=== PATIENT | female | born 1955 | race Caucasian/White ===

== ENCOUNTER → 2016-06-26 | Outpatient (CLI) | payer MEDICARE ==
--- NOTE | 2016-06-30 07:15 | MM ---
Reason for exam: screening (asymptomatic). Last mammogram was performed 4 years ago. History: Patient is postmenopausal. Family history of breast cancer in sister at age 49 and breast cancer in sister at age 54. Benign left mammotome panel of the left breast, October 10, 2004. Physical Findings: A clinical breast exam by your physician is recommended on an annual basis and results should be correlated with mammographic findings. MG 3D Screening Mammo W/Cad Bilateral CC and MLO view(s) were taken. Prior study comparison: June 20, 2012, bilateral digital screening mammo w/CAD. June 03, 2011, bilateral digital screening mammo w/CAD. There are scattered fibroglandular densities. Previous mammotome biopsy within the left breast. No significant changes when compared with prior studies. ASSESSMENT: Negative, BI-RAD 1 RECOMMENDATION: Routine screening mammogram of both breasts in 1 year.
== END | disposition home or self-care (01) ==
LOC: RADMAMWWP 12:46
PROVIDERS: ATTEND Family Medicine
DX: Z12.31 Encounter for screening mammogram for malignant neoplasm of breast (principal)
CPT/HCPCS: 77063; G0202

== ENCOUNTER → 2016-12-31 | Outpatient (CLI) | payer MEDICARE, OTHER ==
--- NOTE | 2016-12-31 16:25 | XR ---
Sinus HISTORY: Headache, sinus pressure 4 views of the sinuses Bone mineralization is maintained. There is no air-fluid level in the paranasal sinuses to suggest ac adolph sinusitis. Orbits are intact. No lytic or blastic lesion evident. IMPRESSION: Correlate for point tenderness to assess for sinusitis, sinus CT could be performed for b juan evaluation.
== END | disposition home or self-care (01) ==
LOC: RADXRMAIN 14:04
PROVIDERS: ATTEND Family Medicine
DX: J32.9 Chronic sinusitis, unspecified (principal)
CPT/HCPCS: 70220

== ENCOUNTER → 2017-04-23 | Outpatient (CLI) | payer MEDICARE, OTHER ==
--- NOTE | 2017-04-23 14:40 | MR ---
EXAMINATION TYPE: MR hand wo con DATE OF EXAM: 04/23/2017 COMPARISON: 12/07/2013 HISTORY: Pain in thoracic spine / Low back pain TECHNIQUE: T1 and T2 axial and sagittal images of the lumbar spine are submitted. FINDINGS: There is no abnormal signal seen within the visualized spinal cord or paraspinal soft tissu es. There is a large vertebral body hemangioma of L1. There is cortical loss involving the right kidn ey which appears chronic and stable from previous exam. At L1-2 there is hypertrophic change of the facets. No disc herniation or canal stenosis. No foramina l encroachment. At L2-3 there is mild hypertrophic change of the facets. No disc herniation, canal stenosis or forami nal encroachment. At L3-4 there is degenerative disc disease and facet arthropathy. No canal stenosis or foraminal encr oachment. No disc herniation. At L4-5 there is hypertrophic change of the facets. Ligamentum flavum hypertrophy. No disc herniation or canal stenosis. At L5-S1 there is moderate degenerative disc disease and facet arthropathy. Moderate bilateral forami nal encroachment secondary to hypertrophic changes and circumferential disc bulging. No Canal stenosi s. IMPRESSION: 1. Stable multilevel degenerative disc disease with most marked findings at L5-S1. Circumferential di sc bulging and hypertrophic changes result in moderate bilateral foraminal encroachment. 2. Multilevel facet arthropathy 3. Chronic cortical loss involving the right kidney is stable correlate for medical renal disease. EXAMINATION TYPE: MR yazan man con DATE OF EXAM: 04/23/2017 COMPARISON: 06/16/2012 HISTORY: Pain in thoracic spine / Low back pain Standard multiplanar, multisequence MRI departmental protocol Multiplanar, multisequence images of the breasts 6 by were acquired. FINDINGS: There is a kyphosis which is stable. Slight scoliotic curvature noted. Vertebral body heights are preserved. Note is made of a hemangioma within the T8 thoracic vertebral s egment. There is loss of disc signal at all levels with loss of disc space at all levels and the most marked findings seen at levels T5-T10 compatible with multilevel degenerative disc disease. No abnormal signal the visualized spinal cord. Large vertebral body hemangioma of L1 noted. No disc herniation, canal stenosis or foraminal encroachment. IMPRESSION: Multilevel degenerative disc disease with no canal stenosis, foraminal encroachment or disc herniatio n. There is mild progression relative to the previous exam.
== END | disposition home or self-care (01) ==
LOC: RADMRIMAIN 13:15
PROVIDERS: ATTEND Psychiatry & Neurology Neurology
DX: M51.37 Other intervertebral disc degeneration, lumbosacral region (principal); M51.26 Other intervertebral disc displacement, lumbar region; M53.86 Other specified dorsopathies, lumbar region; M46.96 Unspecified inflammatory spondylopathy, lumbar region; M51.34 Other intervertebral disc degeneration, thoracic region; Z88.6 Allergy status to analgesic agent
CPT/HCPCS: 72146; 72148

== ENCOUNTER → 2017-10-26 | Outpatient (CLI) | payer MEDICARE ==
--- NOTE | 2017-10-27 12:11 | MM ---
Reason for exam: screening (asymptomatic). Last mammogram was performed 1 year and 4 months ago. History: Patient is postmenopausal. Family history of breast cancer in sister at age 49 and breast cancer in sister at age 54. Benign left mammotome panel of the left breast, October 10, 2004. Physical Findings: A clinical breast exam by your physician is recommended on an annual basis and results should be correlated with mammographic findings. MG 3D Screening Mammo W/Cad Bilateral CC and MLO view(s) were taken. Prior study comparison: June 26, 2016, bilateral MG 3d screening mammo w/cad. June 20, 2012, bilateral digital screening mammo w/CAD. The breast tissue is heterogeneously dense. This may lower the sensitivity of mammography. Stable benign calcifications. There is no discrete abnormality. No significant changes when compared with prior studies. ASSESSMENT: Benign, BI-RAD 2 RECOMMENDATION: Routine screening mammogram of both breasts in 1 year.
== END | disposition home or self-care (01) ==
LOC: RADMAMWWP 11:29
PROVIDERS: ATTEND Family Medicine
DX: Z12.31 Encounter for screening mammogram for malignant neoplasm of breast (principal)
CPT/HCPCS: 77063; 77067

== ENCOUNTER → 2018-11-03 | Outpatient (CLI) | payer MEDICARE, OTHER ==
--- NOTE | 2018-11-07 10:38 | MM ---
Reason for exam: screening (asymptomatic). Last mammogram was performed 1 year ago. History: Patient is postmenopausal. Family history of breast cancer in sister at age 49 and breast cancer in sister at age 54. Benign left mammotome panel of the left breast, October 10, 2004. Physical Findings: A clinical breast exam by your physician is recommended on an annual basis and results should be correlated with mammographic findings. MG 3D Screening Mammo W/Cad Bilateral CC and MLO view(s) were taken. Prior study comparison: October 26, 2017, bilateral MG 3d screening mammo w/cad. June 26, 2016, bilateral MG 3d screening mammo w/cad. The breast tissue is heterogeneously dense. This may lower the sensitivity of mammography. Finding: There are stable typically benign round, diffuse/scattered, coarse calcifications in the left breast. No significant changes in finding since October 26, 2017 and June 26, 2016. ASSESSMENT: Benign, BI-RAD 2 RECOMMENDATION: Routine screening mammogram of both breasts in 1 year.
== END | disposition home or self-care (01) ==
LOC: RADMAMWWP 16:37
PROVIDERS: ATTEND Family Medicine
DX: Z12.31 Encounter for screening mammogram for malignant neoplasm of breast (principal)
CPT/HCPCS: 77063; 77067

== ENCOUNTER → 2019-08-01 | Outpatient (CLI) | payer MEDICARE ==
--- NOTE | 2019-08-01 15:28 | XR ---
EXAMINATION TYPE: XR chest 2V DATE OF EXAM: 08/01/2019 COMPARISON: R chest x-ray 01/31/2013 HISTORY: COPD exacerbation, shortness of breath TECHNIQUE: Frontal and lateral views of the chest are obtained. FINDINGS: There is no focal air space opacity, pleural effusion, or pneumothorax seen. The cardiac silhouette size is within normal limits. The osseous structures are intact. Prominent lung volumes may be indicative of underlying COPD. There is thoracic spondylosis. There is some mild prominence of interstitium. IMPRESSION: No acute cardiopulmonary process.
== END | disposition home or self-care (01) ==
LOC: RADXRMAIN 15:13
PROVIDERS: ATTEND Family Medicine
DX: J44.1 Chronic obstructive pulmonary disease with (acute) exacerbation (principal)
CPT/HCPCS: 71046

== ENCOUNTER 2019-08-07 10:49 | Inpatient (IN) | payer MEDICARE ==
[2019-08-07] MEDS ORDERED: SODIUM CHLORIDE 0.9% 1,000 ML IV STA ×2 (11:18)
[2019-08-07] MEDS ORDERED: MORPHINE SULFATE 4 MG/ML SYRINGE IV STA (11:18)
[2019-08-07] MEDS ORDERED: ONDANSETRON 4 MG/2 ML VIAL IVP STA (11:18)
[2019-08-07] MEDS ORDERED: PANTOPRAZOLE 40 MG/10 ML VIAL IVP STA (11:18)
--- NOTE | 2019-08-07 11:35 | ED ---
URI HPI - General Chief Complaint: Upper Respiratory Infection Stated Complaint: Pneumonia Time Seen by Provider: 08/07/19 11:05 Source: patient, RN notes reviewed, old records reviewed Mode of arrival: ambulatory Limitations: no limitations - History of Present Illness Initial Comments: This Patient is a pleasant 63-year-old female who presents emergency department today for evaluation for complaints of nausea and GERD-like symptoms for the past few days. She's never had a history of GERD. She does complain that she was treated for pneumonia with steroids and antibiotics this week by her primary care physician. She states that she's been having some nausea and vomiting unable to hold her medications down and just feeling generally unwell. Also complains of some headache and feels dehydrated. - Related Data Home Medications Medication Instructions Recorded Confirmed Clopidogrel Bisulfate [Clopidogrel] 75 mg PO DAILY 09/06/14 08/07/19 Albuterol Inhaler [Ventolin Hfa 2 puff INHALATION RT-QID PRN 08/07/19 08/07/19 Inhaler] Alendronate Sodium 70 mg PO WEEKLY 08/07/19 08/07/19 Atorvastatin Calcium [Lipitor] 80 mg PO HS 08/07/19 08/07/19 Azithromycin 250 mg PO DAILY 08/07/19 08/07/19 Benzonatate [Tessalon Perles] 100 mg PO TID PRN 08/07/19 08/07/19 Cyclobenzaprine [Flexeril] 10 mg PO TID PRN 08/07/19 08/07/19 HYDROcodone/APAP 7.5-325MG [[place] 7.5 mg PO TID PRN 08/07/19 08/07/19 7.5-325] predniSONE See Taper PO DAILY 08/07/19 08/07/19 Allergies Allergy/AdvReac Type Severity Reaction Status Date / Time aspirin [From Aggrenox] Allergy muscle Verified 08/07/19 12:36 tightness dipyridamole [From Aggrenox] Allergy muscle Verified 08/07/19 12:36 tightness tylenol elixir Allergy stephen when Uncoded 09/06/14 13:35 urinating Review of Systems ROS Statement: Those systems with pertinent positive or pertinent negative responses have been documented in the HPI. ROS Other: All systems not noted in ROS Statement are negative. Past Medical History Past Medical History: CVA/TIA Additional Past Medical History / Comment(s): CVA X 2-NO RESIDUAL History of Any Multi-Drug Resistant Organisms: None Reported Past Surgical History: Cholecystectomy, Tonsillectomy, Tubal Ligation Additional Past Surgical History / Comment(s): ALBERT CAROTID ENDARTERECTOMY Past Anesthesia/Blood Transfusion Reactions: No Reported Reaction Smoking Status: Current every day smoker Past Alcohol Use History: None Reported Past Drug Use History: None Reported - Past Family History Mother Family Medical History: Diabetes Mellitus, Myocardial Infarction ([place]) Father Family Medical History: Diabetes Mellitus Brother(s) Family Medical History: CVA/TIA Additional Family Medical History / Comment(s): CAROTID ENDARTERECTOMY Sister(s) Family Medical History: Cancer Additional Family Medical History / Comment(s): YOUNGEST SISTER BREAST CA WITH METS,OLDER SISTER BREAST CA General Exam - General Exam Comments Initial Comments: 63-year-old female. Alert and oriented 3 Limitations: no limitations Head exam: Present: atraumatic, normocephalic, normal inspection Eye exam: Present: normal appearance, PERRL, EOMI. Absent: scleral icterus, conjunctival injection, periorbital swelling ENT exam: Present: normal exam, mucous membranes moist Neck exam: Present: normal inspection. Absent: tenderness, meningismus, lymphadenopathy Respiratory exam: Present: normal lung sounds bilaterally. Absent: respiratory distress, wheezes, rales, rhonchi, stridor Cardiovascular Exam: Present: regular rate, normal rhythm, normal heart sounds. Absent: systolic murmur, diastolic murmur, rubs, gallop, clicks GI/Abdominal exam: Present: soft, normal bowel sounds. Absent: distended, tenderness, guarding, rebound, rigid Back exam: Present: normal inspection Course Vital Signs 08/07/19 08/07/19 08/07/19 11:02 12:13 12:49 Temperature 97.5 F L 98.2 F Pulse Rate 115 H 105 H 96 Respiratory 18 20 18 Rate Blood Pressure 135/93 116/100 139/101 O2 Sat by Pulse 96 93 L 100 Oximetry - Reevaluation(s) Reevaluation #1: 08/07/19 13:29 Patient reevaluated several continues complaint of nausea and GI upset. Will be given GI cocktail. Medical Decision Making - Medical Decision Making Patient is a 63-year-old female with complaints of GI discomfort, nausea and GERD-like symptoms. She is being treated for pneumonia with steroids and azithromycin by her PCP for this past week. Patient IV fluids labwork obtained. Patient isn't this time shows evidence of leukocytosis likely related to steroid use. Patient's chest x-rays. She is evidence of COPD but no other acute process. KUB shows ingestion of oral contrast and uncomfortable gas pattern. She does relate to drinking Pepto-Bismol. At this time patient's labs do show evidence of hypercalcemia 14.9. She does report she takes calcium parry pplements at home. Patient is clinically dehydrated from nausea nad vomitng. She denies any history of parathyroid issues. At this time Patient will be admitted for IV hydration. I discussed the case with Dr. Mathur who accepts the admission. - Lab Data Result diagrams: 08/07/19 12:03 08/07/19 12:03 Lab Results 08/07/19 08/07/19 08/07/19 Range/Units 12:03 12:03 12:03 WBC 17.3 H (3.8-10.6) k/uL RBC 5.24 (3.80-5.40) m/uL Hgb 17.0 H (11.4-16.0) gm/dL Hct 52.7 H (34.0-46.0) % MCV 100.6 H (80.0-100.0) fL MCH 32.4 (25.0-35.0) pg MCHC 32.2 (31.0-37.0) g/dL RDW 12.9 (11.5-15.5) % Plt Count 337 (150-450) k/uL Neutrophils % 76 % Lymphocytes % 17 % Monocytes % 5 % Eosinophils % 1 % Basophils % 0 % Neutrophils # 13.1 H (1.3-7.7) k/uL Lymphocytes # 2.9 (1.0-4.8) k/uL Monocytes # 0.9 (0-1.0) k/uL Eosinophils # 0.2 (0-0.7) k/uL Basophils # 0.1 (0-0.2) k/uL PT 9.5 (9.0-12.0) sec INR 0.9 (<1.2) APTT 18.9 L (22.0-30.0) sec D-Dimer 0.25 (<0.60) mg/L FEU Sodium (137-145) mmol/L Potassium (3.5-5.1) mmol/L Chloride (98-107) mmol/L Carbon Dioxide (22-30) mmol/L Anion Gap mmol/L BUN (7-17) mg/dL Creatinine (0.52-1.04) mg/dL Est GFR (CKD-EPI)AfAm (>60 ml/min/1.73 sqM) Est GFR (CKD-EPI)NonAf (>60 ml/min/1.73 sqM) Glucose (74-99) mg/dL Calcium (8.4-10.2) mg/dL Phosphorus (2.5-4.5) mg/dL Magnesium (1.6-2.3) mg/dL Total Bilirubin (0.2-1.3) mg/dL AST (14-36) U/L ALT (4-34) U/L Alkaline Phosphatase (38-126) U/L Troponin I (0.000-0.034) ng/mL Total Protein (6.3-8.2) g/dL Albumin (3.5-5.0) g/dL Amylase (30-110) U/L Lipase (23-300) U/L Urine Color Yellow Urine Appearance Clear (Clear) Urine pH 6.0 (5.0-8.0) Ur Specific [place] 1.015 (1.001-1.035) Urine Protein Negative (Negative) Urine Glucose (UA) Negative (Negative) Urine Ketones Negative (Negative) Urine Blood Negative (Negative) Urine Nitrite Negative (Negative) Urine Bilirubin Negative (Negative) Urine Urobilinogen <2.0 (<2.0) mg/dL Ur Leukocyte Esterase Negative (Negative) 08/07/19 08/07/19 08/07/19 Range/Units 12:03 12:03 13:14 WBC (3.8-10.6) k/uL RBC (3.80-5.40) m/uL Hgb (11.4-16.0) gm/dL Hct (34.0-46.0) % MCV (80.0-100.0) fL MCH (25.0-35.0) pg MCHC (31.0-37.0) g/dL RDW (11.5-15.5) % Plt Count (150-450) k/uL Neutrophils % % Lymphocytes % % Monocytes % % Eosinophils % % Basophils % % Neutrophils # (1.3-7.7) k/uL Lymphocytes # (1.0-4.8) k/uL Monocytes # (0-1.0) k/uL Eosinophils # (0-0.7) k/uL Basophils # (0-0.2) k/uL PT (9.0-12.0) sec INR (<1.2) APTT (22.0-30.0) sec D-Dimer (<0.60) mg/L FEU Sodium 142 (137-145) mmol/L Potassium 4.6 (3.5-5.1) mmol/L Chloride 97 L (98-107) mmol/L Carbon Dioxide 37 H (22-30) mmol/L Anion Gap 8 mmol/L BUN 35 H (7-17) mg/dL Creatinine 1.15 H (0.52-1.04) mg/dL Est GFR (CKD-EPI)AfAm 59 (>60 ml/min/1.73 sqM) Est GFR (CKD-EPI)NonAf 51 (>60 ml/min/1.73 sqM) Glucose 130 H (74-99) mg/dL Calcium 14.9 H* (8.4-10.2) mg/dL Phosphorus 4.8 H (2.5-4.5) mg/dL Magnesium 1.9 (1.6-2.3) mg/dL Total Bilirubin 1.4 H (0.2-1.3) mg/dL AST 25 (14-36) U/L ALT 28 (4-34) U/L Alkaline Phosphatase 103 (38-126) U/L Troponin I <0.012 (0.000-0.034) ng/mL Total Protein 8.3 H (6.3-8.2) g/dL Albumin 4.6 (3.5-5.0) g/dL Amylase 56 (30-110) U/L Lipase 37 (23-300) U/L Urine Color Urine Appearance (Clear) Urine pH (5.0-8.0) Ur Specific [place] (1.001-1.035) Urine Protein (Negative) Urine Glucose (UA) (Negative) Urine Ketones (Negative) Urine Blood (Negative) Urine Nitrite (Negative) Urine Bilirubin (Negative) Urine Urobilinogen (<2.0) mg/dL Ur Leukocyte Esterase (Negative) 08/07/19 12:01 EKG performed at 1152 shows sinus tachycardia possible left atraumatic. Borderline EKG. Ventricular rate of 110 bpm. Intervals 136 most seconds. QRS duration is 82 ms. QT QTc is 328/443 ms. - Radiology Data Radiology results: report reviewed Chest x-ray shows no acute process. Correlating for COPD. KUB shows nonspecific abdomen there appears to be contrast continue within the bowel correlate clinically. On questioning Patient reports she drank Pepto-Bismol. Disposition Clinical Impression: Leukocytosis, Hypercalcemia, Dehydration, Nausea & vomiting, GERD (gastroesophageal reflux disease) Disposition: ADMITTED IP TO THIS [facility] Condition: Stable Is patient prescribed a controlled substance at d/c from ED?: No Referrals: Chapito Neil DO [Primary Care Provider] - 1-2 days Time of Disposition: 14:02
--- NOTE | 2019-08-07 11:46 | XR ---
EXAMINATION TYPE: XR chest 2V DATE OF EXAM: 08/07/2019 COMPARISON: 08/01/2019 TECHNIQUE: PA and lateral views submitted. HISTORY: Pain FINDINGS: The lungs are clear and there is no pneumothorax, pleural effusion, or focal pneumonia. Hyperinflat ion suggests COPD. Hypertrophic and degenerative change of the spine. Biapical pleural thickening. Di ffuse osteopenia. No overt failure. Surgical clips in the gallbladder fossa noted. IMPRESSION: 1. No acute process. 2. Correlate for COPD.
--- NOTE | 2019-08-07 11:47 | XR ---
EXAMINATION TYPE: XR KUB DATE OF EXAM: 08/07/2019 COMPARISON: NONE HISTORY: Pain and nausea TECHNIQUE: One view abdominal series FINDINGS: The osseous structures are intact. The bowel gas pattern is nonspecific. Lung bases are clear. Ther e is be contrast contained within the bowel. Correlate for recent barium exam or CT scan. Diffuse ost eopenia noted. IMPRESSION: 1. Nonspecific abdomen. There appears to be contrast contained within the bowel correlate clinically .
[2019-08-07 12:16] LABS: Basophils # (A) 0.1 k/uL (0-0.2); Basophils % (A) 0 %; Eosinophils # (A) 0.2 k/uL (0-0.7); Eosinophils % (A) 1 %; HCT 52.7 % (34.0-46.0); Lymphocytes # (A) 2.9 k/uL (1.0-4.8); Lymphocytes % (A) 17 %; MCH 32.4 pg (25.0-35.0); MCHC 32.2 g/dL (31.0-37.0); MCV 100.6 fL (80.0-100.0); Mean Platelet Volume 8.8; Monocytes # (A) 0.9 k/uL (0-1.0); Monocytes % (A) 5 %; Neutrophils # (A) 13.1 k/uL (1.3-7.7); Neutrophils % (A) 76 %; Platelet Count 337 k/uL (150-450); RBC 5.24 m/uL (3.80-5.40); RDW 12.9 % (11.5-15.5); WBC 17.3 k/uL (3.8-10.6)
[2019-08-07 12:25] LABS: Appearance,Urine Clear (Clear); Color,Urine Yellow; Glucose,Urine (UA) Negative (Negative); Protein,Urine Negative (Negative); Specific Gravity,Urine 1.015 (1.001-1.035)
[2019-08-07 12:26] LABS: Bilirubin,Urine Negative (Negative); Blood,Urine Negative (Negative); Ketones,Urine Negative (Negative); Leukocyte Esterase,Urine Negative (Negative); Nitrite,Urine Negative (Negative); Urobilinogen,Urine <2.0 mg/dL (<2.0)
[2019-08-07 12:29] LABS: Albumin 4.6 g/dL (3.5-5.0); Potassium 4.6 mmol/L (3.5-5.1); Total Bilirubin 1.4 mg/dL (0.2-1.3); Total Protein 8.3 g/dL (6.3-8.2)
[2019-08-07 12:30] LABS: Bacteria,Urine Few /hpf; Hyaline Casts,Urine 8 /lpf (0-2); Mucus,Urine Occasional /hpf; RBC,Urine 1 /hpf (0-5); Squamous Epithelial Cell,Urine 16 /hpf (0-4); WBC,Urine 13 /hpf (0-5)
[2019-08-07 12:51] LABS: Calcium 14.9 mg/dL (8.4-10.2); D-Dimer 0.25 mg/L FEU (<0.60); INR 0.9 (<1.2); Prothrombin Time 9.5 sec (9.0-12.0)
[2019-08-07 12:57] LABS: Partial Thromboplastin Time 18.9 sec (22.0-30.0)
[2019-08-07] MEDS ORDERED: MAG HYDROX/AL HYDROX/SIMETH 30 ML, HYOSCYAMINE ELIXIR 10 ML, LIDOCAINE VISCOUS 2% 10 ML PO STA ×3 (13:27)
[2019-08-07 13:29] LABS: Magnesium 1.9 mg/dL (1.6-2.3); Phosphorus 4.8 mg/dL (2.5-4.5)
[2019-08-07] MEDS ORDERED: MORPHINE SULFATE 4 MG/ML SYRINGE IV PRN (14:05)
[2019-08-07] MEDS ORDERED: NALOXONE 0.4 MG/ML 1 ML VIAL IV PRN (14:05)
[2019-08-07] MEDS ORDERED: ONDANSETRON 4 MG/2 ML VIAL IVP PRN (14:05)
[2019-08-07] MEDS ORDERED: ACETAMINOPHEN TAB 325 MG TAB PO PRN (14:05)
[2019-08-07] MEDS: SODIUM CHLORIDE 0.9% 1,000 ML IV SCH ×3 (14:09→23:20)
[2019-08-07] MEDS ORDERED: CYCLOBENZAPRINE 10 MG TAB PO PRN (16:03)
[2019-08-07] MEDS ORDERED: ALBUTEROL NEBULIZED 2.5 MG/3 ML INHALATION PRN (16:03)
[2019-08-07] MEDS ORDERED: HYDROcodone/APAP 5-325MG 1 EACH TAB PO PRN (16:05)
[2019-08-07] MEDS ORDERED: ALPRAZolam 0.25 MG TAB PO PRN (16:05)
--- NOTE | 2019-08-07 17:14 | HP ---
HISTORY AND PHYSICAL DATE OF SERVICE: 08/07/2019 CHIEF COMPLAINTS: Vomiting and dehydration. HISTORY OF PRESENT ILLNESS: This 63-year-old woman with a past medical history of multiple medical problems, such as CVA, TIA, hyperlipidemia, history of DJD, being followed by Dr. Chapito Neil in the outpatient setting, had recent episodes of pneumonia which were treated in the outpatient setting. The patient was taking apparently antibiotics and steroids. Patient is complaining of vomiting, nausea and being unable to keep anything down. Patient came to [facility] and was found to have a calcium of 14.9. The patient is severely dehydrated. Patient is admitted for further evaluation and treatment. The patient is unable to keep anything down. Chest x-ray which was done in the ER was personally reviewed by me and showed evidence of possible COPD and some increased bronchovascular markings. There is no history of any fever, rigor or chills. No history of headache, loss of consciousness, seizures at this time. PAST MEDICAL HISTORY: History of CVA, TIA, hyperlipidemia, history of DJD, history of recent pneumonia, history of chronic back pain, DJD, history of cholecystectomy. HOME MEDICATIONS: 1. Prednisone daily. 2. Zithromax daily. 3. Hydrocodone 7.5 mg t.i.d. p.r.n. 4. Flexeril 10 mg t.i.d. p.r.n. 5. Tessalon Perles 100 mg t.i.d. p.r.n. 6. Lipitor 80 mg at bedtime. 7. Fosamax 70 mg weekly. 8. Albuterol p.r.n. 9. Plavix 75 mg p.o. daily. ALLERGIES: ASPIRIN, AGGRENOX, TYLENOL. FAMILY HISTORY: History of diabetes, myocardial infarction. SOCIAL HISTORY: History of smoking, continued, ongoing. REVIEW OF SYSTEMS: ENT: No diminished hearing. No diminished vision. CARDIOVASCULAR SYSTEM: No angina, palpitations. RESPIRATORY SYSTEM: As mentioned earlier. GI: As mentioned earlier. : No dysuria or retention. NERVOUS SYSTEM: No numbness, weakness. ALLERGY/IMMUNOLOGY: No asthma, hayfever. MUSCULOSKELETAL: As mentioned earlier. HEMATOLOGY/ONCOLOGY: No history of anemia. ENDOCRINE: No history of diabetes, hypothyroidism. CONSTITUTIONAL: As mentioned earlier. DERMATOLOGY: Negative. RHEUMATOLOGY: Negative. PSYCHIATRY: As mentioned earlier. PHYSICAL EXAMINATION: Patient alert and oriented x3. Pulse 96, blood pressure 139/101, respirations 18, temperature 98.2, pulse ox 100% on 2 L. HEENT: Conjunctivae normal. Oral mucosa moist. NECK: No jugular venous distention. No carotid bruit. No lymph node enlargement. CARDIOVASCULAR SYSTEM: S1, S2 muffled. No S3. No S4. RESPIRATORY SYSTEM: Breath sounds diminished at the bases. A few scattered rhonchi and crackles. Expiratory wheezing also present. ABDOMEN: Soft. Mild diffuse discomfort on palpation. NO guarding. No rigidity. Slightly distended. LEGS: No edema. No swelling. NERVOUS SYSTEM: Higher functions as mentioned earlier. Moves all 4 limbs. No focal motor or sensory deficit. LYMPHATICS: No lymph node palpable in neck, axillae or groin. L SKIN: No ulcer, rash, bleeding. JOINTS: No active deforming arthropathy. LABS: Lab investigations at this time show WBC 17.6, hemoglobin 17, and D-dimer is 0.25. Sodium 142, potassium 4.6 and creatinine is 1.15. Calcium is 14.9. ASSESSMENT: 1. Nausea, vomiting, incessant; acute gastritis with severe dehydration. 2. Hypercalcemia for evaluation. 3. Increased creatinine with acute renal failure, possibly prerenal acute tubular necrosis. 4. History of recent pneumonia. 5. Chronic obstructive pulmonary disease, acute exacerbation. 6. Increased white count. 7. Increased mean corpuscular volume. 8. Possible urinary tract infection, present on admission. 9. History of cerebrovascular accident, transient ischemic attack. 10.Hyperlipidemia. 11.History of degenerative joint disease. 12.Hypertension. 13.History of cholecystectomy. 14.History of bilateral carotid endarterectomies. 15.Continued ongoing nicotine dependence. 16.FULL CODE. RECOMMENDATIONS AND DISCUSSION: In this 63-year-old woman who presented with multiple complex medical issues, we will monitor the patient closely, continue the current medications, continue symptomatic treatment. Otherwise I recommend bronchodilators, empiric antibiotics, symptomatic treatment. Will repeat the calcium. We will also order parathyroid hormone. Overall prognosis guarded because of multiple complex medical issues. Further recommendations to follow. We will monitor the fluid/electrolyte balance closely. A copy of this dictation is being forwarded to Dr. Chapito Neil, who is the primary physician. COVID-19 has also been requested. MMODL / IJN: [id number] /
[2019-08-07] MEDS: ATORVASTATIN 80 MG TAB PO SCH (19:53)
[2019-08-07] MEDS: HEPARIN SODIUM,PORCINE 5,000 UNIT/ML 1 ML VIAL SQ SCH (19:54)
[2019-08-07] MEDS: PANTOPRAZOLE 40 MG/10 ML VIAL IVP SCH (19:54)
[2019-08-07] MEDS ORDERED: TEMAZEPAM 15 MG CAP PO PRN (21:00)
[2019-08-08] MEDS: SODIUM CHLORIDE 0.9% 1,000 ML IV SCH ×3 (04:16→15:05)
[2019-08-08 06:54] LABS: MCH 32.8 pg (25.0-35.0); MCHC 31.9 g/dL (31.0-37.0); MCV 102.8 fL (80.0-100.0); Macrocytosis Slight; Mean Platelet Volume 9.5; WBC 10.6 k/uL (3.8-10.6)
[2019-08-08 07:06] LABS: African American GFR (CKD) >90 (>60 ml/min/1.73 sqM); Anion Gap 1 mmol/L; Blood Urea Nitrogen 27 mg/dL (7-17); Calcium 9.6 mg/dL (8.4-10.2); Carbon Dioxide 28 mmol/L (22-30); Chloride 111 mmol/L (98-107); Glucose 84 mg/dL (74-99); Non-African American GFR(CKD) 81 (>60 ml/min/1.73 sqM); Sodium 140 mmol/L (137-145)
[2019-08-08 07:08] LABS: Potassium 4.3 mmol/L (3.5-5.1)
[2019-08-08 07:09] LABS: Eosinophils # (M) 0.21 k/uL (0-0.7); Monocytes # (M) 0.64 k/uL (0-1.0); Neutrophils # (M) 6.25 k/uL (1.3-7.7); Neutrophils % (M) 59 %; Nucleated Red Blood Cells 0 /100 WBC (0-0); Total Cells Counted 100
[2019-08-08 07:18] LABS: HGB 12.4 gm/dL (11.4-16.0); Platelet Count 92 k/uL (150-450)
[2019-08-08] MEDS: HEPARIN SODIUM,PORCINE 5,000 UNIT/ML 1 ML VIAL SQ SCH ×2 (08:28→20:02)
[2019-08-08] MEDS: PANTOPRAZOLE 40 MG/10 ML VIAL IVP SCH ×2 (08:28→20:02)
[2019-08-08] MEDS ORDERED: PANTOPRAZOLE 40 MG/10 ML VIAL IV SCH (09:00)
[2019-08-08] MEDS: ATORVASTATIN 80 MG TAB PO SCH (20:01)
--- NOTE | 2019-08-08 20:14 | PN ---
PROGRESS NOTE DATE OF SERVICE: 08/08/2019 This 63-year-old woman who was admitted with vomiting and dehydration had severe hypercalcemia yesterday. After hydration calcium improved to 9.6. Creatinine is also improved and the PTH level is pending at this time. The intact PTH is 27, which is within normal limits. The phosphorus level was also 4.8, which is slightly high. PHYSICAL EXAMINATION: Alert and oriented x3. Pulse is 63, blood pressure 107/51, respirations 16, temperature 97.8, pulse ox 98% on room air. HEENT: Conjunctivae normal. NECK: No jugular venous distention. CARDIOVASCULAR SYSTEM: S1, S2 muffled. RESPIRATORY SYSTEM: Breath sounds diminished at the bases. A few scattered rhonchi. No crackles. ABDOMEN: Soft, non-tender. LEGS: No edema. No swelling. NERVOUS SYSTEM: No focal deficit. LABS: Labs at this time show WBC 10.6, hemoglobin 12.4, MCV 102.8, sodium 140, potassium 4.3. ASSESSMENT: 1. Nausea and vomiting, incessant; possible acute gastritis, severe dehydration. 2. Severe hypercalcemia from dehydration. 3. Increased creatinine with acute renal failure, possibly prerenal acute tubular necrosis. 4. History of recent pneumonia. 5. Chronic obstructive pulmonary disease, acute exacerbation. 6. Increased white count. 7. History of increased mean corpuscular volume. 8. Acute urinary tract infection, present on admission. 9. History of cerebrovascular accident, transient ischemic attack. 10.Hyperlipidemia. 11.History of degenerative joint disease. 12.Hypertension. 13.History of cholecystectomy. 14.History of bilateral carotid endarterectomies. 15.Continued ongoing nicotine dependence. 16.FULL CODE. RECOMMENDATIONS AND DISCUSSION: I recommend to continue current medications, continue with the monitoring, symptomatic treatment. Will cut down the IV fluids further. Otherwise, repeat labs in the morning. Continue with DVT prophylaxis, empiric antibiotics. Guarded prognosis. Further recommendations to follow. MMODL / IJN: [id number] /
[2019-08-09] MEDS: SODIUM CHLORIDE 0.9% 1,000 ML IV SCH (00:19)
[2019-08-09 05:36] VITALS: BP 119/75; PULSE 76; RESP 16; TEMP 97.4
[2019-08-09 07:51] LABS: African American GFR (CKD) >90 (>60 ml/min/1.73 sqM); Anion Gap 5 mmol/L; Blood Urea Nitrogen 18 mg/dL (7-17); Carbon Dioxide 25 mmol/L (22-30); Chloride 113 mmol/L (98-107); Glucose 87 mg/dL (74-99); Non-African American GFR(CKD) >90 (>60 ml/min/1.73 sqM); Sodium 143 mmol/L (137-145)
[2019-08-09] MEDS: PANTOPRAZOLE 40 MG/10 ML VIAL IVP SCH (07:52)
[2019-08-09] MEDS: HEPARIN SODIUM,PORCINE 5,000 UNIT/ML 1 ML VIAL SQ SCH (07:52)
[2019-08-09 07:57] LABS: Potassium 4.1 mmol/L (3.5-5.1)
[2019-08-09 08:24] LABS: Basophils % (A) 0 %; Eosinophils # (A) 0.3 k/uL (0-0.7); Eosinophils % (A) 3 %; HCT 35.2 % (34.0-46.0); HGB 11.9 gm/dL (11.4-16.0); Lymphocytes # (A) 2.3 k/uL (1.0-4.8); Lymphocytes % (A) 23 %; MCH 34.3 pg (25.0-35.0); MCHC 33.9 g/dL (31.0-37.0); MCV 101.3 fL (80.0-100.0); Mean Platelet Volume 11.7; Monocytes # (A) 0.6 k/uL (0-1.0); Monocytes % (A) 6 %; Neutrophils # (A) 6.6 k/uL (1.3-7.7); Neutrophils % (A) 67 %; RBC 3.48 m/uL (3.80-5.40); RDW 12.9 % (11.5-15.5); WBC 9.8 k/uL (3.8-10.6)
[2019-08-09 08:25] LABS: Platelet Count 188 k/uL (150-450)
--- NOTE | 2019-08-10 09:36 | P.DS ---
Providers Date of admission: 08/07/19 14:03 Expected date of discharge: 08/09/19 Attending physician: Bonny Mathur Primary care physician: Chapito Neil [facility] Course: Final diagnosis Nausea and vomiting, incessant, possible acute gastritis, severe dehydration Severe hypercalcemia, from dehydration Increased creatinine with acute renal failure, possibly prerenal acute tubular necrosis History of recent pneumonia Chronic obstructive pulmonary disease, acute exacerbation Increased white count History of increased mean corpuscle volume Acute urinary tract infection, present on admission History of cerebrovascular accident, TIA Hyperlipidemia History of degenerative joint disease Hypertension History of cholecystectomy History of bilateral carotid endarterectomies Continued ongoing nicotine dependence Full code Discharge disposition Patient is being discharged in a stable condition with guarded prognosis to home. Patient will follow-up with Dr. Nanette Neil upon discharge in the outpatient setting. Patient will continue on a short course of oral antibiotics in the form of Ceftin 500 mg twice daily for the next 3 days to complete the course. Total time taken is greater than 35 minutes. History of present illness This is a 63-year-old female who was recently admitted with vomiting and dehydration and also found to have severe hypercalcemia and was being closely monitored. Patient was also noted to have some nausea and vomiting and multiple episodes of diarrhea along with abdominal discomfort. Patient was also initiated on IV antibiotics for acute urinary tract infection and will transition to oral antibiotics in the form of Ceftin 500 mg twice daily for the next 3 days to complete the course. Urine cultures showing no growth. Patient's kidney functions were also slightly elevated and improved with gentle IV hydration. Current creatinine is 0.71. Patient's calcium has improved and is 9.0. Patient instructed to avoid calcium in the diet and continue bland diet in the outpatient setting for the next few days. Patient also instructed of avoid coffee and caffeine. A prescription was provided for repeat labs in a few days to monitor electrolytes and kidney functions. Patient was also provided a prescription for Protonix and is to continue until follow-up. Patient normally takes Plavix and was instructed to continue holding for the next 2 days and then may resume. Patient was instructed to follow-up with primary care provider Dr. Nanette Neil in the outpatient setting upon discharge. Patient states she would like to go home today and is feeling much better with no reports of vomiting. Currently no reports of chest pain, shortness of breath, or palpitations. Patient is afebrile. No reports of nausea or vomiting and patient is tolerating diet. Patient will be discharged home today. Guarded prognosis. On exam vital signs are stable. Temp is 97.4F, pulse is 76, respirations are 16, blood pressure is 119/75, oxygen saturation is 95% on room air. Cardio S1, S2 are muffled. Respiratory system shows diminished breath sounds at the bases with no wheezing or rhonchi noted. Abdomen is soft and nontender. Nervous system shows no focal deficits. Please refer to medication reconciliation sheet for a list of medications. Patient Condition at Discharge: Stable Plan - Discharge Summary Discharge Rx Participant: No New Discharge Prescriptions: New Pantoprazole Sodium [Protonix] 40 mg PO BID 30 Days #60 tablet. Ondansetron Odt [Zofran Odt] 4 mg PO Q8HR PRN #12 tab PRN Reason: Nausea Cefuroxime Axetil [Ceftin] 500 mg PO BID 3 Days #6 tab Continue Clopidogrel Bisulfate [Clopidogrel] 75 mg PO DAILY Cyclobenzaprine [Flexeril] 10 mg PO TID PRN PRN Reason: Pain Benzonatate [Tessalon Perles] 100 mg PO TID PRN PRN Reason: Cough Atorvastatin Calcium [Lipitor] 80 mg PO HS Alendronate Sodium 70 mg PO WEEKLY Albuterol Inhaler [Ventolin Hfa Inhaler] 2 puff INHALATION RT-QID PRN PRN Reason: Shortness Of Breath HYDROcodone/APAP 7.5-325MG [[place] 7.5-325] 7.5 mg PO TID PRN PRN Reason: Pain Discontinued predniSONE See Taper PO DAILY Azithromycin 250 mg PO DAILY Discharge Medication List Clopidogrel Bisulfate [Clopidogrel] 75 mg PO DAILY 09/06/14 [History] Albuterol Inhaler [Ventolin Hfa Inhaler] 2 puff INHALATION RT-QID PRN 08/07/19 [History] Alendronate Sodium 70 mg PO WEEKLY 08/07/19 [History] Atorvastatin Calcium [Lipitor] 80 mg PO HS 08/07/19 [History] Benzonatate [Tessalon Perles] 100 mg PO TID PRN 08/07/19 [History] Cyclobenzaprine [Flexeril] 10 mg PO TID PRN 08/07/19 [History] HYDROcodone/APAP 7.5-325MG [[place] 7.5-325] 7.5 mg PO TID PRN 08/07/19 [History] Cefuroxime Axetil [Ceftin] 500 mg PO BID 3 Days #6 tab 08/09/19 [Rx] Ondansetron Odt [Zofran Odt] 4 mg PO Q8HR PRN #12 tab 08/09/19 [Rx] Pantoprazole Sodium [Protonix] 40 mg PO BID 30 Days #60 tablet. 08/09/19 [Rx] Follow up Appointment(s)/Referral(s): Chapito Neil DO [Primary Care Provider] - 08/15/19 9:30 am () Ambulatory/Diagnostic Orders: Basic Metabolic Panel [LAB.AMB] Time Frame: 2 Days, Location: None Selected Patient Instructions/Handouts: Dehydration (DC), Diet for Stomach Ulcers and Gastritis (ED), Hypercalcemia (DC) Activity/Diet/Wound Care/Special Instructions: Activity Limited until follow-up Continue current bland food diet for the next few days and slowly advance as tolerated Avoid coffee and calcium in her diet Follow-up with primary care provider upon discharge Continue holding Plavix for an additional 2 days Repeat labs in 2-3 days Continue with antibiotics for 3 days and then may discontinue Discharge Disposition: HOME SELF-CARE
[2019-08-14] MEDS ORDERED: NON FORMULARY DRUG (Alendronate Sodium [Alendronate Sodium] 70 MG) PO SCH (09:00)
== END 2019-08-09 12:21 | disposition home or self-care (01) | DRG 391 ==
LOC: EC 10:49 → 3SCARD 14:03 → 5NMEDONC 08-08 22:29
PROVIDERS: ADMIT Hospitalist; ATTEND Hospitalist
DX: K29.00 Acute gastritis without bleeding (principal); N17.0 Acute kidney failure with tubular necrosis; J44.1 Chronic obstructive pulmonary disease with (acute) exacerbation; N39.0 Urinary tract infection, site not specified; E78.5 Hyperlipidemia, unspecified; E83.52 Hypercalcemia; E86.0 Dehydration; F17.210 Nicotine dependence, cigarettes, uncomplicated; I10 Essential (primary) hypertension; K21.9 Gastro-esophageal reflux disease without esophagitis; Z86.73 Personal history of transient ischemic attack (TIA), and cerebral infarction without residual deficits; Z87.01 Personal history of pneumonia (recurrent); Z79.02 Long term (current) use of antithrombotics/antiplatelets; Z79.83 Long term (current) use of bisphosphonates; Z79.899 Other long term (current) drug therapy; Z79.52 Long term (current) use of systemic steroids; Z80.3 Family history of malignant neoplasm of breast; Z82.49 Family history of ischemic heart disease and other diseases of the circulatory system; Z83.3 Family history of diabetes mellitus; Z90.49 Acquired absence of other specified parts of digestive tract; Z88.6 Allergy status to analgesic agent; Z88.8 Allergy status to other drugs, medicaments and biological substances; Z20.828 Contact with and (suspected) exposure to other viral communicable diseases
CPT/HCPCS: 36415; 71046; 74018; 80048; 80053; 81003; 82150; 83690; 83735; 83970; 84100; 84484; 85025; 85379; 85610; 85730; 87086; 93005; 94640; 94760; 96361; 96365; 96375; 96376; 99285

== ENCOUNTER 2021-07-01 20:13 | Emergency (ER) | payer MEDICARE ==
[2021-07-01 20:19] VITALS: BP 110/72; PULSE 107; RESP 18; TEMP 97.9
--- NOTE | 2021-07-01 22:20 | XR ---
EXAMINATION TYPE: XR chest 2V DATE OF EXAM: 07/01/2021 9:32 PM COMPARISON: Chest radiographs from 08/07/2019 TECHNIQUE: XR chest 2V Portable AP radiograph of the chest.. CLINICAL INDICATION:Female, 65 years old with history of Chest Pain; FINDINGS: Lungs/Pleura: Basilar streaky opacities are seen in the lung bases which have increased from prior. T here is flattening of the diaphragm with increased lucency of the lungs. No evidence of pneumothorax, pleural effusion or focal consolidation. Pulmonary vascularity: Unremarkable. Heart/mediastinum: Cardiomediastinal silhouette is unremarkable. Musculoskeletal: No acute osseous pathology. IMPRESSION: 1. Basilar atelectasis/fibrosis without acute cardiopulmonary disease process. 2. COPD changes.
== END 2021-07-02 00:03 | disposition left against medical advice (07) ==
LOC: EC 20:13
DX: R07.9 Chest pain, unspecified (principal); Z53.21 Procedure and treatment not carried out due to patient leaving prior to being seen by health care provider
CPT/HCPCS: 71046; 93005; 99499

== ENCOUNTER → 2022-12-14 | Outpatient (CLI) | payer MEDICARE ==
--- NOTE | 2022-12-15 08:49 | MM ---
Reason for Exam: Screening (asymptomatic). Last mammogram was performed 4 year(s) and 1 month(s) ago. Patient History: Menarche at age 12. First Full-Term at age 17. Postmenopausal. 10/10/2004, Benign Core Biopsy on the left side. Sister had breast cancer, age 49. Sister had breast cancer, age 54. Risk Values: Day 5 year model risk: 9.3%. NCI Lifetime model risk: 29.6%. Prior Study Comparison: 06/26/2016 Bilateral Screening Mammogram, [facility]. 10/26/2017 Bilateral Screening Mammogram, [facility]. 11/03/2018 Bilateral Screening Mammogram, [facility]. Tissue Density: There are scattered fibroglandular densities. Findings: Analyzed By CAD. Pattern appears symmetrical and stable. Scattered benign calcifications are present bilaterally. Core marker is within the left breast. No suspicious groups of microcalcifications, spiculated or lobular masses, architectural distortion or other secondary signs of malignancy are mammographically apparent. Overall Assessment: Benign, BI-RAD 2 Management: Screening Mammogram of both breasts in 1 year. A negative mammogram report should not preclude additional follow up of suspicious palpable abnormalities. Patient should continue monthly self breast exam. A clinical breast exam by your physician is recommended on an annual basis and results should be correlated with mammographic findings. Electronically signed and approved by: Emanuel Hearn D.O. Radiologis
== END | disposition home or self-care (01) ==
LOC: RADMAMWWP 14:26
PROVIDERS: ATTEND Family Medicine
DX: Z12.31 Encounter for screening mammogram for malignant neoplasm of breast (principal); Z78.0 Asymptomatic menopausal state; Z80.3 Family history of malignant neoplasm of breast
CPT/HCPCS: 77063; 77067

== ENCOUNTER → 2022-12-29 | Day surgery (SDC) | payer MEDICARE ==
[2022-12-25 10:27] VITALS: BMI 28.7
[~2022-12-29] MED LIST: LACTATED RINGERS 1,000 ML IV SCH; LIDOCAINE 1% (10MG/ML) FOR IV START INTRADERMA PRN
[2022-12-29 11:28] VITALS: RESP 16; TEMP 97.1
--- NOTE | 2022-12-29 12:45 | P.PCN ---
Date of Procedure: 12/29/22 Procedure(s) Performed: BRIEF HISTORY: Patient is a 67-year-old pleasant 8 female scheduled for an elective colonoscopy as a part of screening for colon cancer/positive cologuard PROCEDURE PERFORMED: Colonoscopy with biopsy and snare polypectomy. PREOPERATIVE DIAGNOSIS: Screening for colon cancer/positive cologuard. IV sedation per Anesthesia. PROCEDURE: After informed consent was obtained, the patient, was brought into the endoscopy unit. IV sedation was administered by Anesthesia under continuous monitoring. Digital rectal examination was normal. Initially the Olympus CF-160 flexible video colonoscope was then inserted in the rectum, gradually advanced into the cecum without any difficulty. Careful examination was performed as the scope was gradually being withdrawn. Ileocecal valve and the appendiceal orifice were visualized and appeared normal. Prep was excellent. Mucosa of the cecum had a 3 millimeter polyp that was removed by cold biopsy. In the hepatic flexure there was 1 cm polyp removed by snare polypectomy. Rest of the, ascending colon, transverse colon, descending colon, sigmoid colon, and rectum appeared normal. Retroflexion was performed in the rectum and no lesions were seen. The patient tolerated the procedure well. IMPRESSION: 3 mm cecal polyp status post cold biopsy 1 cm hepatic flexure polyp status post snare polypectomy RECOMMENDATIONS: Findings of this examination were discussed with the patient as well as her family. She was advised to follow with the biopsy. If the biopsy results revealed adenoma, she can have a repeat colonoscopy in 3 years..
[2022-12-29 13:11] VITALS: BP 132/83; PULSE 91
== END ==
LOC: ORWHC2ENDO 10:23
PROVIDERS: ATTEND Internal Medicine Gastroenterology
DX: D12.3 Benign neoplasm of transverse colon (principal); E78.5 Hyperlipidemia, unspecified; J44.9 Chronic obstructive pulmonary disease, unspecified; K21.9 Gastro-esophageal reflux disease without esophagitis; F17.200 Nicotine dependence, unspecified, uncomplicated; Z86.73 Personal history of transient ischemic attack (TIA), and cerebral infarction without residual deficits; Z79.899 Other long term (current) drug therapy; Z79.51 Long term (current) use of inhaled steroids; Z79.1 Long term (current) use of non-steroidal anti-inflammatories (NSAID)
CPT/HCPCS: 45380; 45385; 88305

== ENCOUNTER → 2023-06-30 | Outpatient (CLI) | payer MEDICARE ==
--- NOTE | 2023-06-30 16:49 | US ---
EXAMINATION TYPE: US liver DATE OF EXAM: 06/30/2023 COMPARISON: NONE CLINICAL INDICATION: Female, 67 years old with history of R94.4 ABNORMAL RESULTS OF KIDNEY FUNCTION S TUDIES; Abnormal labs. Patient states she is NPO. Patient states she had gall stones and the stones removed. telecommunications field technician asked if she had her GB removed and she said she had her gallstones remove d and thats it. TECHNIQUE: Multiple sonographic images of the right upper quadrant are obtained. FINDINGS: EXAM MEASUREMENTS: Liver Length: 14.0 cm CBD: 0.5 cm Right Kidney: 7.9 x 4.6 x 4.3 cm Pancreas: Tail obscured by overlying bowel gas, echogenic in appearance. Liver: wnl as visualized. Gallbladder: Unable to visualize and may be surgically absent. CBD: wnl Right Kidney: Lower echogenic focus with twinkling artifact - 1.1 cm consistent with renal stone. N o hydronephrosis. Cortical medullary differentiation is maintained. IMPRESSION: Nonobstructive right renal calculus.
== END | disposition home or self-care (01) ==
LOC: RADUSWWP 07:27
PROVIDERS: ATTEND Family Medicine
DX: N20.0 Calculus of kidney (principal); R94.4 Abnormal results of kidney function studies
CPT/HCPCS: 76705

== ENCOUNTER → 2024-05-18 | Outpatient (CLI) | payer MEDICARE ==
[2024-05-18 15:22] LABS: African American GFR (CKD) 70 (>60 ml/min/1.73 sqM); Blood Urea Nitrogen 19 mg/dL (7-17); Non-African American GFR(CKD) 61 (>60 ml/min/1.73 sqM)
--- NOTE | 2024-05-18 20:16 | CT ---
EXAMINATION TYPE: CT urogram wo/w con CT DLP: 1153 mGycm, Automated exposure control for dose reduction was used. DATE OF EXAM: 05/18/2024 4:44 PM COMPARISON: Ultrasound liver 06/30/2023, KUB radiograph 08/07/2019 CLINICAL INDICATION:Female, 68 years old with history of R31.9 HEMATURIA; PHH, hematuria, bladder inf ection TECHNIQUE: Urogram of the abdomen and pelvis was performed before and after the administration of 100 cc of IV c ontrast Isovue 370 contrast. Delayed imaging was performed. Coronal and sagittal reformats were perfo rmed. One or more CT dose reduction strategies were utilized during this examination. FINDINGS: GENITOURINARY: RIGHT KIDNEY AND URETER: There is a 1.1 x 0.6 cm calculus within the lower pole of the right kidney. No hydronephrosis or hydroureter. Regions of cortical thinning involving the mid and lower portion of the right kidney from prior injury. No renal mass or other lesions. No filling defect, dilatation or stricture. There is some mild wall thickening of the proximal ureter. LEFT KIDNEY AND URETER: No calculi. No hydronephrosis or hydroureter. No suspicious enhancing lesion. Medial upper pole cortical 0.8 cm cyst. No urothelial lesions: no filling defect, dilation, strictur e or wall thickening. URINARY BLADDER: Moderately well distended. Normal, no calculi, mass or other lesions. REPRODUCTIVE: Unremarkable. ABDOMEN LIVER: Unremarkable. GALLBLADDER AND BILE DUCTS: Gallbladder is surgically absent. No biliary duct dilatation. PANCREAS: Unremarkable. SPLEEN: Unremarkable. ADRENAL GLANDS: Unremarkable. STOMACH AND BOWEL: The appendix is within normal limits. No focal bowel wall thickening or surroundin g inflammatory changes.. No evidence of bowel obstruction. PERITONEUM: No evidence of pneumoperitoneum, free fluid, or adenopathy. VASCULATURE: Atherosclerotic calcifications are present throughout the abdominal aorta and its branch es. No abdominal aortic aneurysm. Pelvic phleboliths. MUSCULOSKELETAL: No acute osseous abnormalities. Mild degenerative changes of the bilateral SI joints . Mild multilevel degenerative disease. Benign vertebral hemangioma involving the L1 vertebral body. SOFT TISSUE/ABDOMINAL WALL: Small left periumbilical hernia containing fat. LOWER CHEST: No significant findings. IMPRESSION: 1. No evidence of obstructive uropathy. There is a right renal lower pole 1.1 x 0.6 cm nonobstructive calculus. 2. No suspicious enhancing renal neoplasm. Subcentimeter left renal simple cyst. 3. Circumferential mild thickening of the proximal right ureter likely related to chronic inflammator y changes versus other etiologies. Consider direct visualization. 4. Focal regions of cortical thinning involving the mid and lower pole right kidney likely related to prior injury. [facility], , 05/18/2024 8:13 PM
== END | disposition home or self-care (01) ==
LOC: RADCTMAIN 14:31
PROVIDERS: ATTEND Family Medicine
DX: N20.0 Calculus of kidney (principal); N28.1 Cyst of kidney, acquired; N28.89 Other specified disorders of kidney and ureter
CPT/HCPCS: 82565; 84520; 74178; 36415; 74400; Q9967

== ENCOUNTER 2024-06-17 18:05 | Inpatient (IN) | payer MEDICARE ==
--- NOTE | 2024-06-17 18:31 | CT ---
EXAMINATION TYPE: CODE STROKE: CT brain wo contr DATE OF EXAM: 06/17/2024 6:22 PM COMPARISON: 09/19/2011. CLINICAL INDICATION: Female, 68 years old with history of Neuro deficit, acute, stroke suspected, cva TECHNIQUE: Brain: Axial CT images of the brain were obtained with coronal and sagittal reformats created and rev iewed. Contrast used: None. Oral contrast used: None. CT DLP: 1171.1 mGycm, Automated exposure control for dose reduction was used. FINDINGS: Brain: Extra-axial spaces: No abnormal extra-axial fluid collections. Ventricular system: Dilatation in proportion to cerebral atrophy. Falx calcifications present. Cerebral parenchyma: Encephalomalacia and white matter changes of the left frontal lobe prior injury. Prior injury of the right frontal lobe also present. No acute intraparenchymal hemorrhage or mass ef fect. The campos-white junction is well differentiated. Cerebellum: Unremarkable. Mass effect: No evidence of midline shift. Intracranial vasculature: Atherosclerotic calcifications of the intracranial vessels. Soft tissues: Normal. Calvarium/osseous structures: No depressed skull fracture. Paranasal sinuses and mastoid air cells: Mild scattered paranasal sinus disease. Visualized orbits: Orbital contents are intact. IMPRESSION: 1. No acute intracranial process. 2. Remote bilateral frontal lobe injuries 3. Nonspecific white matter changes, likely secondary to chronic small vessel ischemic disease. Findings communicated to Michael Red MD on 06/17/2024 6:[address] Francois Thurman. [facility], , 06/17/2024 6:29 PM
[2024-06-17] MEDS: SODIUM CHLORIDE 0.9% 1,000 ML IV STA (18:39)
[2024-06-17 18:56] LABS: Basophils # (A) 0.08 10*3/uL (0.00-0.10); Eosinophils # (A) 0.15 10*3/uL (0.04-0.35); Eosinophils % (A) 1.8 %; HCT 38.1 % (37.2-46.3); HGB 13.3 g/dL (12.0-15.0); Immature Platelet Fraction 6.7 % (1.1-6.1); Lymphocytes # (A) 2.01 10*3/uL (0.90-5.00); Lymphocytes % (A) 24.4 %; MCH 34.7 pg (27.0-32.0); MCHC 34.9 g/dL (32.0-37.0); MCV 99.5 fL (80.0-97.0); Mean Platelet Volume 11.6 fL (9.5-12.2); Monocytes # (A) 0.62 10*3/uL (0.20-1.00); Monocytes % (A) 7.5 %; Neutrophils # (A) 5.37 10*3/uL (1.80-7.70); Neutrophils % (A) 65.1 %; Platelet Count 195 10*3/uL (140-440); RBC 3.83 10*6/uL (4.10-5.20); RDW 13.2 % (11.5-14.5); WBC 8.25 10*3/uL (4.50-10.00)
--- NOTE | 2024-06-17 19:01 | CT ---
EXAMINATION TYPE: CT angio head neck DATE OF EXAM: 06/17/2024 6:48 PM COMPARISON: CT head same day. CTA 06/03/2011. CLINICAL INDICATION: Female, 68 years old with history of Neuro deficit, acute, stroke suspected; PHH , cva TECHNIQUE: Axially acquired helical CT angiogram of the head and neck was obtained with contrast. Axi al images are supplemented with 3D reconstructions and MIP images which were post-processed at an in dependent workstation. NASCET criteria used. Contrast used:65cc mL of Isovue 370 with IV Contrast, Oral contrast used: None. CT DLP: 277.1 mGycm, Automated exposure control for dose reduction was used. FINDINGS: CTA HEAD: No evidence of acute intracranial hemorrhage, mass effect, or midline shift. The ventricles, sulci, a nd cisterns are unremarkable. Vertebral arteries: The vertebral arteries are patent. Vertebral artery dominance: Codominant Basilar artery: The basilar artery is intact. The basilar artery bifurcation is normal. Internal Carotid arteries: Portions of the right internal carotid artery are occluded mild backfillin g as seen on prior dating back to at least 2011. The left internal carotid artery intracranial portio ns are intact. No high-grade stenosis. Few scattered calcifications present. YELENA: Patent with no evidence of aneurysm. ACOM: Present without evidence of aneurysm. MCA: Patent with no evidence of aneurysm. RN SECURITY: Patent with no evidence of aneurysm. PCOM: origin right hypoplastic left. Dural sinuses: Patent. CTA NECK: Right Carotid System: The common carotid artery and external carotid artery are patent. The internal carotid artery is occl uded extending from just past its origin into the [place]. Left Carotid System: The common carotid and external carotid arteries are patent. There is less than 41 % stenosis at the proximal internal carotid artery secondary to predominantly noncalcified plaque. The rest of the inte rnal carotid artery is patent. Vertebral arteries are patent without evidence hemodynamically significant stenosis. There is a three-vessel aortic arch. The origins of the great vessels are patent. No evidence of hemo dynamically significant stenosis. Upper thorax: IMPRESSION: 1. Similar from 06/03/2011, Occlusion of the right internal carotid artery extending from its origin to the [place]. 2. 41% stenosis of the proximal left internal carotid artery secondary to noncalcified plaque. 3. The vertebral arteries are patent. 4. No evidence of intracranial high-grade stenosis or intracranial aneurysm. [facility], , 06/17/2024 6:58 PM
[2024-06-17 19:06] LABS: ALT 11 U/L (4-34); African American GFR (CKD) 83 (>60 ml/min/1.73 sqM); Anion Gap 6 mmol/L; Blood Urea Nitrogen 15 mg/dL (7-17); Calcium 7.7 mg/dL (8.4-10.2); Carbon Dioxide 25 mmol/L (22-30); Chloride 103 mmol/L (98-107); Glucose 75 mg/dL (74-99); Non-African American GFR(CKD) 72 (>60 ml/min/1.73 sqM); Sodium 134 mmol/L (137-145)
[2024-06-17 19:25] LABS: Albumin 2.7 g/dL (3.5-5.0); Total Bilirubin 1.1 mg/dL (0.2-1.3); Total Protein 5.4 g/dL (6.3-8.2)
[2024-06-17 19:26] LABS: AST 24 U/L (14-36); Alkaline Phosphatase 39 U/L (38-126); Creatine Kinase 53 U/L (30-135)
[2024-06-17 19:30] LABS: Prothrombin Time 10.6 sec (10.0-12.5)
[2024-06-17 19:32] LABS: Partial Thromboplastin Time 20.3 sec (22.0-30.0)
--- NOTE | 2024-06-17 20:48 | ED ---
General Adult HPI - General Chief complaint: Neuro Symptoms/Deficit Stated complaint: stroke like symptoms Time Seen by Provider: 06/17/24 18:05 Source: patient, RN notes reviewed, old records reviewed Mode of arrival: EMS Limitations: no limitations - History of Present Illness Initial comments: Patient is a 68-year-old female presents emergency department as a stroke activation. Last known well was sometime last night as she awoke at 3:30 AM today complaining of right sided facial numbness as well as possible weakness of the face. Did not come in until later this evening. Denies any falls. Denies any history of traumatic injury in the brain. History of CVA apparently. Denies any chest pain or shortness of breath. Is not on blood thinners. Presents for further evaluation at this time. - Related Data Home Medications Medication Instructions Recorded Confirmed Albuterol Inhaler [Ventolin Hfa 2 puff INHALATION RT-QID PRN 08/07/19 12/29/22 Inhaler] Alendronate Sodium 70 mg PO WEEKLY 08/07/19 12/29/22 Atorvastatin Calcium [Lipitor] 80 mg PO HS 08/07/19 12/25/22 Cyclobenzaprine [Flexeril] 10 mg PO TID PRN 08/07/19 12/25/22 HYDROcodone/APAP 7.5-325MG [[place] 7.5 mg PO TID PRN 08/07/19 12/25/22 7.5-325] ARIPiprazole [Abilify] 2 mg PO DAILY 12/25/22 12/29/22 Aspirin [Sharp Aspirin EC] 81 mg PO DAILY 12/25/22 12/25/22 DULoxetine HCL [Cymbalta] 60 mg PO BID 12/25/22 12/25/22 Ergocalciferol [Vitamin D2 (1250 1 tab PO DAILY 12/25/22 12/25/22 Mcg = 39382 Iu)] Potassium Citrate [Potassium 10 meq PO DAILY 12/25/22 12/25/22 Citrate ER] Allergies Allergy/AdvReac Type Severity Reaction Status Date / Time dipyridamole [From Aggrenox] Allergy muscle Verified 12/25/22 10:05 tightness tylenol elixir Allergy stephen when Uncoded 12/25/22 10:05 urinating Review of Systems ROS Statement: Those systems with pertinent positive or pertinent negative responses have been documented in the HPI. Review of Systems: CONST: Denies fever EYES: Denies blurry vision ENT: Denies nasal congestion C/V: Denies Chest pain RESP: Denies shortness of breath GI: Denies abdominal pain : Denies dysuria SKIN: Denies rash. MSK: Denies joint pain. NEURO: Denies headache ROS Other: All systems not noted in ROS Statement are negative. Past Medical History Past Medical History: COPD, CVA/TIA, Hyperlipidemia, Osteoarthritis (OA), Vascular Disorder Additional Past Medical History / Comment(s): Recent pneumonia 2021, CVA X 2-NO RESIDUAL, chronic back pain/thoracic herniated discs, bilateral carpal tunnel syndrome, bilateral caratid endartectomies. History of Any Multi-Drug Resistant Organisms: None Reported Past Surgical History: Cholecystectomy, Tonsillectomy, Tubal Ligation Additional Past Surgical History / Comment(s): ALBERT CAROTID ENDARTERECTOMY, colonoscopy, Past Anesthesia/Blood Transfusion Reactions: No Reported Reaction Additional Past Anesthesia/Blood Transfusion Reaction / Comment(s): no blood transfusion Smoking Status: Current every day smoker - Past Family History Mother Family Medical History: Diabetes Mellitus, Myocardial Infarction ([place]) Additional Family Medical History / Comment(s): Mother of a [place] at the age of 64 yrs. Father Family Medical History: Diabetes Mellitus, Vascular Disorder Additional Family Medical History / Comment(s): Father had bilateral leg amputations Brother(s) Family Medical History: CVA/TIA Additional Family Medical History / Comment(s): CAROTID ENDARTERECTOMY Sister(s) Family Medical History: Cancer Additional Family Medical History / Comment(s): YOUNGEST SISTER BREAST CA WITH METS,OLDER SISTER BREAST CA General Exam - General Exam Comments Initial Comments: General: Appears in no acute distress. HEAD: Normal with no signs of head trauma. EYES: EOMI ENT: Hearing grossly intact, normal oropharynx. RESPIRATORY: Clear breath sounds bilaterally. No wheezes, rales, or rhonchi. C/V: Regular rate and rhythm. S1 and S2 auscultated, peripheral pulses 2+ and intact throughout ABD: Abd is soft, nontender, nondistended EXT: Normal range of motion, no obvious deformity SKIN: No rashes or lesions observed on exposed skin. NEURO: Alert and oriented x 4. NIH of 3. 1 point for right sided facial droop, 1 point for dysarthria, 1 point for right-sided decree sensation to light touch of the face. Limitations: no limitations Course Vital Signs 06/17/24 06/17/24 06/17/24 18:27 19:00 19:30 Temperature 97.8 F Pulse Rate 90 Respiratory 18 Rate Blood Pressure 98/64 107/69 105/77 O2 Sat by Pulse 93 L Oximetry 06/17/24 06/17/24 06/17/24 20:00 20:30 20:46 Temperature Pulse Rate 91 Respiratory Rate Blood Pressure 85/56 105/72 105/72 O2 Sat by Pulse 87 L Oximetry 06/17/24 06/17/24 20:47 20:50 Temperature Pulse Rate 91 90 Respiratory 19 Rate Blood Pressure 107/73 107/73 O2 Sat by Pulse 98 94 L Oximetry Medical Decision Making - Medical Decision Making Was pt. sent in by a medical professional or institution (, PA, HYPERION DEVELOPER, urgent care, hospital, or correction...) When possible be specific @ -No Did you speak to anyone other than the patient for history (EMS, parent, family, police, friend...)? What history was obtained from this source @ -No Did you review nursing and triage notes (agree or disagree)? Why? @ -I reviewed and agree with nursing and triage notes Were old charts reviewed (outside hosp., previous admission, EMS record, old EKG, old radiological studies, urgent care reports/EKG's, correction records)? Report findings @ -No old charts were reviewed Differential Diagnosis (chest pain, altered mental status, abdominal pain women, abdominal pain men, vaginal bleeding, weakness, fever, dyspnea, syncope, headache, dizziness, GI bleed, back pain, seizure, CVA, palpatations, mental health, musculoskeletal)? @ -Differential CVA Ischemic stroke, hemorrhagic stroke, brain tumor, atypical migraine, Wernicke's encephalopathy, seizure, multiple sclerosis, meningitis, encephalitis, hypoglycemia, Guillain-Cummins, electrolytes disturbance, myasthenia gravis.... This is not meant to be an all-inclusive list EKG interpreted by me (3pts min.). @ -As above X-rays interpreted by me (1pt min.). @ -Chest x-ray shows no obvious acute cardiopulmonary process. CT interpreted by me (1pt min.). @ -CT brain shows no obvious acute intracranial process. CT angiogram of the head and neck shows the chronic occlusion of the right carotid artery dating ba ck to 2011. Remote CVA findings present. No obvious acute process left carotid artery 41% stenosis. U/S interpreted by me (1pt. min.). @ -None done What testing was considered but not performed or refused? (CT, X-rays, U/S, labs)? Why? @ -None What meds were considered but not given or refused? Why? @ -Considered tenecteplase however patient is outside of the window and woke up with the symptoms at 3:30 AM. Risks far outweigh the benefits. Did you discuss the management of the patient with other professionals (professionals i.e. , PA, HYPERION DEVELOPER, lab, RT, psych nurse, manager social work, miter grinder operator, t eacher, state patrol officer, case planner)? Give summary @ -Patient was made a code stroke and I spoke withDr. Bowden who was in agreement with plan for medical management as long as imaging was unremarkable. Spoke with the admitting provider, HUY KARIMI accepted the admission. Was smoking cessation discussed for >3mins.? @ -No Was critical care preformed (if so, how long)? @ -Yes, 33-minute Were there social determinants of health that impacted care today? How? (Homelessness, low income, unemployed, alcoholism, drug addiction, transportation, low edu. Level, literacy, decrease access to med. care, senior care, rehab)? @ -No Was there de-escalation of care discussed even if they declined (Discuss DNR or withdrawal of care, Hospice)? DNR status @ -No What co-morbidities impacted this encounter? (DM, HTN, Smoking, COPD, CAD, Cancer, CVA, ARF, Chemo, Hep., AIDS, mental health diagnosis, sleep apnea, morbid obesity)? @ -None Was patient admitted / discharged? Hospital course, mention meds given and route, prescriptions, significant lab abnormalities, going to OR and other pertinent info. @ -Patient presents as a code stroke. Last known well was when she awoke at 3:30 AM, so technically sometime last night. NIH is 3. Is not a tenecteplase candidate as risk for outweigh the benefits and patient is outside of the window. She expressed understanding. Will obtain CT and CT angiogram. I spoke with the on-call neurointensivist, Dr. Bowden who was in agreement this plan and recommended medical management as long as imaging was unremarkable. EKG shows no signs of acute ischemia. Laboratory studies unremarkable. Contaminated urine. Chest x-ray unremarkable. Brain CT shows remote infarcts but no obvious acute intracranial process. CT angiogram of the head and neck re veals chronic right carotid blockage that is unchanged from 2012, and mild stenosis secondary to a plaque at the left carotid artery. On reevaluation, patient still has an NIH of 3. She will be given aspirin. She will be admitted for medical management. She was in agreement this plan. Neurology consulted. I spoke with the admitting provider, HUY Garza of [facility] who accepted the admission. Undiagnosed new problem with uncertain prognosis? @ -No Drug Therapy requiring intensive monitoring for toxicity (Heparin, Nitro, Insulin, Cardizem)? @ -No Were any procedures done? @ -No Diagnosis/symptom? @ -CVA Acute, or Chronic, or Acute on Chronic? @ -Acute Uncomplicated (without systemic symptoms) or Complicated (systemic symptoms)? @ -Complicated Side effects of treatment? @ -No Exacerbation, Progression, or Severe Exacerbation? @ -No Poses a threat to life or bodily function? How? (Chest pain, [place], [place], pneumonia, PE, COPD, DKA, ARF, appy, cholecystitis, CVA, Diverticulitis, Homicidal, Suicidal, threat to staff... and all critical care pts) @ -Yes - Lab Data Result diagrams: 06/17/24 18:35 06/17/24 18:35 Lab Results 06/17/24 06/17/24 06/17/24 Range/Units 18:35 18:35 18:35 WBC 8.25 (4.50-10.00) 10*3/uL RBC 3.83 L (4.10-5.20) 10*6/uL Hgb 13.3 (12.0-15.0) g/dL Hct 38.1 (37.2-46.3) % MCV 99.5 H (80.0-97.0) fL MCH 34.7 H (27.0-32.0) pg MCHC 34.9 (32.0-37.0) g/dL Plt Count 195 (140-440) 10*3/uL MPV 11.6 (9.5-12.2) fL Immature Gran % (Auto) 0.2 % Neutrophils % 65.1 % Lymphocytes % 24.4 % Monocytes % 7.5 % Eosinophils % 1.8 % Basophils % 1.0 % Immature Gran # 0.02 (0.00-0.04) 10*3/uL Neutrophils # 5.37 (1.80-7.70) 10*3/uL Lymphocytes # 2.01 (0.90-5.00) 10*3/uL Monocytes # 0.62 (0.20-1.00) 10*3/uL Eosinophils # 0.15 (0.04-0.35) 10*3/uL Basophils # 0.08 (0.00-0.10) 10*3/uL Immature Plt Fraction 6.7 H (1.1-6.1) % PT 10.6 (10.0-12.5) sec INR 1.0 (<1.2) APTT 20.3 L (22.0-30.0) sec Sodium 134 L (137-145) mmol/L Potassium 4.0 (3.5-5.1) mmol/L Chloride 103 (98-107) mmol/L Carbon Dioxide 25 (22-30) mmol/L Anion Gap 6 mmol/L BUN 15 (7-17) mg/dL Creatinine 0.84 (0.52-1.04) mg/dL Est GFR (CKD-EPI)AfAm 83 (>60 ml/min/1.73 sqM) Est GFR (CKD-EPI)NonAf 72 (>60 ml/min/1.73 sqM) Glucose 75 (74-99) mg/dL Calcium 7.7 L (8.4-10.2) mg/dL Total Bilirubin 1.1 (0.2-1.3) mg/dL AST 24 (14-36) U/L ALT 11 (4-34) U/L Alkaline Phosphatase 39 (38-126) U/L Creatine Kinase 53 (30-135) U/L Total Protein 5.4 L (6.3-8.2) g/dL Albumin 2.7 L (3.5-5.0) g/dL - EKG Data -: EKG Interpreted by Vt EKG Comments: 12-lead Electrocardiogram Interpretation Note EKG was reviewed and interpreted by myself. 12-lead ECG performed at 1832 is interpreted by me as revealing normal sinus rhythm at a rate of 85 beats per minute. [place] is normal. [place] interval is 155 ms, QRS duration is 89 ms, QTc is 419 ms. There were no ST or T wave abnormalities to suggest myocardial ischemia or injury. R wave progression across the precordium was satisfactory. By my interpretation this EKG is non-diagnostic for acute ischemia. Critical Care Time Critical Care Time: Yes Total Critical Care Time: 33 Disposition Clinical Impression: Cerebrovascular accident (CVA) Disposition: ADMITTED IP TO THIS HOSP Condition: Stable Time of Disposition: 20:00
--- NOTE | 2024-06-17 20:54 | XR ---
EXAMINATION TYPE: XR chest 2V DATE OF EXAM: 06/17/2024 8:40 PM COMPARISON: Chest radiographs from 07/01/2021. CLINICAL INDICATION: Female, 68 years old with history of altered mental status; [facility] TECHNIQUE: XR chest 2V Frontal and lateral views of the chest. FINDINGS: Lungs/Pleura: Prominent interstitial lung markings are seen scattered throughout the lungs with raymond ening of the diaphragm and increased lucency of the lung apices. No evidence of focal consolidation, pneumothorax or pleural effusion. Pulmonary vascularity: Unremarkable. Heart/mediastinum: Cardiomediastinal silhouette is unremarkable. Musculoskeletal: No acute osseous pathology. Other findings: None Lines/Tubes: IMPRESSION: Chronic changes without acute pulmonary process. No significant change from prior. [facility], , 06/17/2024 8:51 PM
[2024-06-17] MEDS: ASPIRIN 325 MG TAB PO STA (21:22)
[2024-06-17 21:47] LABS: Appearance,Urine Clear (Clear); Bilirubin,Urine Negative (Negative); Blood,Urine Negative (Negative); Color,Urine Light Yellow; Glucose,Urine (UA) Negative (Negative); Hyaline Casts,Urine 8 /lpf (0-2); Ketones,Urine Negative (Negative); Leukocyte Esterase,Urine Trace (Negative); Mucus,Urine Rare /hpf; Nitrite,Urine Negative (Negative); PH, Urine 6.5 (5.0-8.0); Protein,Urine Negative (Negative); RBC,Urine 6 /hpf (0-5); Specific Gravity,Urine 1.045 (1.001-1.035); Squamous Epithelial Cell,Urine 4 /hpf (0-4); Urobilinogen,Urine <2.0 mg/dL (<2.0); WBC,Urine 15 /hpf (0-5)
[2024-06-17 21:53] LABS: Amphetamine Screen,Urine Not Detected (NotDetected); Barbiturate Screen,Urine Not Detected (NotDetected); Benzodiazepines Screen,Urine Not Detected (NotDetected); Cocaine Screen,Urine Not Detected (NotDetected); Methadone Screen, Urine Not Detected (NotDetected); Opiate Screen,Urine Detected (NotDetected); Oxycodone Screen, Urine Not Detected (NotDetected); Phencyclidine Screen,Urine Not Detected (NotDetected); Tricyclic Antidepressant,Urine Detected (NotDetected); Urn Cannabinoid Scrn Detected (NotDetected)
[2024-06-18] MEDS: ASPIRIN 325 MG TAB PO SCH (10:07)
[2024-06-18 11:02] LABS: Chol/HDL Ratio 2.85 Ratio; LDL Cholesterol,Calculated 54.2 mg/dL (0.0-131.0)
[2024-06-18 11:43] LABS: Basophils # (A) 0.06 10*3/uL (0.00-0.10); Basophils % (A) 0.6 %; Eosinophils # (A) 0.13 10*3/uL (0.04-0.35); Eosinophils % (A) 1.3 %; HCT 41.9 % (37.2-46.3); HGB 14.1 g/dL (12.0-15.0); Lymphocytes # (A) 1.58 10*3/uL (0.90-5.00); Lymphocytes % (A) 15.9 %; MCH 34.4 pg (27.0-32.0); MCHC 33.7 g/dL (32.0-37.0); MCV 102.2 fL (80.0-97.0); Mean Platelet Volume 10.8 fL (9.5-12.2); Monocytes # (A) 0.72 10*3/uL (0.20-1.00); Monocytes % (A) 7.3 %; Neutrophils # (A) 7.41 10*3/uL (1.80-7.70); Neutrophils % (A) 74.6 %; Platelet Count 212 10*3/uL (140-440); RDW 13.2 % (11.5-14.5); WBC 9.93 10*3/uL (4.50-10.00)
--- NOTE | 2024-06-18 13:56 | P.HPIM ---
History of Present Illness H&P Date: 06/18/24 History of present illness; patient 68-year-old lady with past medical history significant for hyperlipidemia to the ER because of right-sided facial numbness. Patient admits she was all right last night but when this morning when she woke up around 3:30 AM she noticed that she was having some numbness of her right side of her face. There was no complaint of any slurred speech. Patient denied any weakness of any extremity. There was no complaint of jerking movement of the extremity. Patient did not come to the ER later in the afternoon. Initial lab work done in the ER showed WBC 8.25, hemoglobin 13.3, platelet count 195, sodium 134, potassium 4, BUN 15, creatinine 0.84, calcium 7.7, UA not suggestive of infection Urine drug screen shows positive opioids, tricyclic antidepressants, marijuana EKG done in the ER showed heart rate of 85, no ST segment elevation or depression seen, no T-wave inversions seen. Chest x-ray done in the ER showed chronic changes without acute pulmonary proce ss. CT head done showed no acute intracranial process, showed remote bilateral frontal lobe CTA head and neck done showed similar to previous study showing occlusion of the right internal carotid artery extending from its origin to the [place] of [place], 41% stenosis of the proximal left internal carotid artery secondary to noncalcified plaque Patient admitted to internal medicine service REVIEW OF SYSTEMS: CONSTITUTIONAL: No fever, no malaise, no fatigue. HEENT: No recent visual problems or hearing problems. Denied any sore throat. CARDIOVASCULAR: No chest pain, orthopnea, PND, no palpitations, no syncope. PULMONARY: No shortness of breath, no cough, no hemoptysis. GASTROINTESTINAL: No diarrhea, no nausea, no vomiting, no abdominal pain. NEUROLOGICAL: As mentioned above HEMATOLOGICAL: Denies any bleeding or petechiae. GENITOURINARY: Denies any burning micturition, frequency, or urgency. MUSCULOSKELETAL/RHEUMATOLOGICAL: Denies any joint pain, swelling, or any muscle pain. ENDOCRINE: Denies any polyuria or polydipsia. The rest of the 14-point review of systems is negative. PHYSICAL EXAMINATION: GENERAL: The patient is alert and oriented x3, not in any acute distress. Well developed, well nourished. HEENT: Pupils are round and equally reacting to light. EOMI. No scleral icterus. No conjunctival pallor. Normocephalic, atraumatic. No pharyngeal erythema. No thyromegaly. CARDIOVASCULAR: S1 and S2 present. No murmurs, rubs, or gallops. PULMONARY: Chest is clear to auscultation, no wheezing or crackles. ABDOMEN: Soft, nontender, nondistended, normoactive bowel sounds. No palpable organomegaly. MUSCULOSKELETAL: No joint swelling or deformity. EXTREMITIES: No cyanosis, clubbing, or pedal edema. NEUROLOGICAL: Muscle strength is 5 x 5 in all extremities, cranial nerves II to XII intact, right-sided numbness on face. SKIN: No rashes. Assessment and plan Right-sided facial numbness rule out acute CVA History of hyperlipidemia Monitor vital signs Monitor CBC Monitor CMP Continue telemetry monitoring Ordered neurochecks Ordered lipid panel Order HbA1c level Ordered aspirin, Lipitor Ordered 2D echo Ordered MRI brain Neurology consult Labs and medication were reviewed.. Continue same treatment. Continue with symptomatic treatment. Resume home medication. Monitor labs and vitals. DVT and GI prophylaxis. Further recommendations as per clinical course of the patient Dictation was produced using RateIt[employer] dictation software. please excuse any gram matical, word or spelling errors. Past Medical History Past Medical History: COPD, CVA/TIA, Hyperlipidemia, Osteoarthritis (OA), Vascular Disorder Additional Past Medical History / Comment(s): Recent pneumonia 2021, CVA X 2-NO RESIDUAL, chronic back pain/thoracic herniated discs, bilateral carpal tunnel syndrome, bilateral caratid endartectomies. History of Any Multi-Drug Resistant Organisms: None Reported Past Surgical History: Cholecystectomy, Tonsillectomy, Tubal Ligation Additional Past Surgical History / Comment(s): ALBERT CAROTID ENDARTERECTOMY, col onoscopy, Past Anesthesia/Blood Transfusion Reactions: No Reported Reaction Additional Past Anesthesia/Blood Transfusion Reaction / Comment(s): no blood transfusion Past Psychological History: Depression Additional Psychological History / Comment(s): Pt resides with her significant other. She is independent. Smoking Status: Current every day smoker Past Alcohol Use History: None Reported Additional Past Alcohol Use History / Comment(s): Pt started smoking in 1969 and is a ppd smoker. She drank daily in past but no alcohol for 15 years Past Drug Use History: None Reported - Past Family History Mother Family Medical History: Diabetes Mellitus, Myocardial Infarction ([place]) Additional Family Medical History / Comment(s): Mother of a [place] at the age of 64 yrs. Father Family Medical History: Diabetes Mellitus, Vascular Disorder Additional Family Medical History / Comment(s): Father had bilateral leg amputations Brother(s) Family Medical History: CVA/TIA Additional Family Medical History / Comment(s): CAROTID ENDARTERECTOMY Sister(s) Family Medical History: Cancer Additional Family Medical History / Comment(s): YOUNGEST SISTER BREAST CA WITH METS,OLDER SISTER BREAST CA Medications and Allergies Home Medications Medication Instructions Recorded Confirmed Type Albuterol Inhaler [Ventolin Hfa 2 puff INHALATION RT-Q4H PRN 08/07/19 06/18/24 History Inhaler] Cyclobenzaprine [Flexeril] 10 mg PO TID PRN 08/07/19 06/18/24 History HYDROcodone/APAP 7.5-325MG [[place] 1 tab PO TID PRN 08/07/19 06/18/24 History 7.5-325] Aspirin [[place] Aspirin EC] 81 mg PO DAILY 12/25/22 06/18/24 History DULoxetine HCL [Cymbalta] 60 mg PO DAILY 06/18/24 06/18/24 History Allergies Allergy/AdvReac Type Severity Reaction Status Date / Time dipyridamole [From Aggrenox] Allergy muscle Verified 06/18/24 11:38 tightness tylenol elixir Allergy stephen when Uncoded 12/25/22 10:05 urinating Physical Exam Vitals: Vital Signs Temp Pulse Pulse Resp BP BP Pulse Ox 06/18/24 07:31 97.5 F L 85 17 138/76 92 L 06/18/24 07:07 98.3 F 85 18 95/67 96 06/18/24 05:00 79 18 103/71 96 06/18/24 02:30 78 93/61 96 06/18/24 02:00 80 93/61 97 06/18/24 01:30 80 93/73 96 06/18/24 01:00 98/63 94 L 06/18/24 00:30 80 88/69 95 06/18/24 00:00 82 102/63 94 L 06/17/24 23:49 97.9 F 82 20 100/61 94 L 06/17/24 23:30 84 85/57 95 06/17/24 23:00 82 105/64 96 06/17/24 22:30 82 103/75 98 06/17/24 22:00 90 114/74 89 L 06/17/24 21:30 105 H 107/76 06/17/24 21:00 93 107/73 93 L 06/17/24 20:57 89 107/73 96 06/17/24 20:50 90 107/73 94 L 06/17/24 20:47 91 19 107/73 98 06/17/24 20:46 91 105/72 87 L 06/17/24 20:30 105/72 06/17/24 20:00 85/56 06/17/24 19:30 105/77 06/17/24 19:00 107/69 06/17/24 18:27 97.8 F 90 18 98/64 93 L Intake and Output 06/17/24 06/18/24 06/18/24 22:59 06:59 14:59 Other: Voiding Method Toilet Weight 53.977 kg 53.977 kg Results CBC & Chem 7: 06/18/24 11:10 06/17/24 18:35 Labs: Abnormal Lab Results - Last 24 Hours (Table) 06/17/24 06/17/24 06/17/24 Range/Units 18:35 18:35 18:35 RBC 3.83 L (4.10-5.20) 10*6/uL MCV 99.5 H (80.0-97.0) fL MCH 34.7 H (27.0-32.0) pg Immature Plt Fraction 6.7 H (1.1-6.1) % APTT 20.3 L (22.0-30.0) sec Sodium 134 L (137-145) mmol/L Calcium 7.7 L (8.4-10.2) mg/dL Total Protein 5.4 L (6.3-8.2) g/dL Albumin 2.7 L (3.5-5.0) g/dL Ur Specific [place] (1.001-1.035) Ur Leukocyte Esterase (Negative) Urine RBC (0-5) /hpf Urine WBC (0-5) /hpf Hyaline Casts (0-2) /lpf Urine Mucus (None) /hpf Urine Opiates Screen (NotDetected) U Tricyclic Antidepress (NotDetected) U Marijuana (THC) Screen (NotDetected) 06/17/24 Range/Units 21:33 RBC (4.10-5.20) 10*6/uL MCV (80.0-97.0) fL MCH (27.0-32.0) pg Immature Plt Fraction (1.1-6.1) % APTT (22.0-30.0) sec Sodium (137-145) mmol/L Calcium (8.4-10.2) mg/dL Total Protein (6.3-8.2) g/dL Albumin (3.5-5.0) g/dL Ur Specific [place] 1.045 H (1.001-1.035) Ur Leukocyte Esterase Trace H (Negative) Urine RBC 6 H (0-5) /hpf Urine WBC 15 H (0-5) /hpf Hyaline Casts 8 H (0-2) /lpf Urine Mucus Rare H (None) /hpf Urine Opiates Screen Detected H (NotDetected) U Tricyclic Antidepress Detected H (NotDetected) U Marijuana (THC) Screen Detected H (NotDetected)
[2024-06-18] MEDS: ATORVASTATIN 40 MG TAB PO SCH (20:08)
[2024-06-18] MEDS ORDERED: CYCLOBENZAPRINE 10 MG TAB PO PRN (22:14)
[2024-06-18] MEDS: HYDROcodone/APAP 7.5-325MG 1 EACH TAB PO PRN (22:19)
--- NOTE | 2024-06-19 01:16 | P.CNNES ---
History of Present Illness Consult date: 06/18/24 Requesting physician: Michael Red Reason for Consult: CVA History of Present Illness: Patient is a 68-year-old right-handed female came to the hospital by ambulance yesterday at 6:05 PM for right facial numbness. Patient states her symptoms started 2 nights ago at 2:30 AM and she noticed numbness of the right side of the face. Her lower lip felt swollen. The symptoms lasted for 10 minutes. She ignored, and went to sleep. Since then, she has been having some intermittent numbness of the lower lip, and once in a great while gets tingling below the right eye in the lower lid region. Denies any paresthesias anywhere else. Her got worried about these symptoms therefore called the EMS. As per EMS flowsheet, when they arrived patient was alert and oriented x 4, complaining of waking up with facial numbness. Patient went to bed around 11 PM normal and when she woke up at 3 AM, she had symptoms. Patient denied any recent trauma, chest pain difficulty breathing nausea vomiting. Patient's blood pressure was 116/66, pulse rate 72 temperature 97 respiration 18, blood sugar 142. Vital signs has been stable. Blood test shows normal WBC hemoglobin. Platelets are 195. MCV elevated 99.5. PT PTT normal, sodium 134 potassium 4.0, normal renal and hepatic panel. UA is negative. Urine drug screen positive for opiates, tricyclic and marijuana. CT head showed no acute intracranial process. Remote bilateral frontal lobe injuries. Nonspecific white matter changes, likely secondary to chronic small vessel ischemic disease. Chest x-ray shows chronic changes without acute pulmonary process. No significant change from prior. EKG showed sinus rhythm. Patient denies any history of hypertension, diabetes. Denies any history of strokes or TIA. She started smoking at age 13. She smoked half pack per day for 40 years, and she has increased to 1-1/2 pack per day for 15 years. Denies any alcohol use. Patient denies use of marijuana, but states her partner smokes marijuana. Home medications include Flexeril, [place], aspirin 81 mg and Cymbalta 60 mg daily. Review of Systems All pertinent positive and negative resisted mentioned that she had, otherwise unremarkable. 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 History of Any Multi-Drug Resistant Organisms: None Reported Past Surgical History: Cholecystectomy, Tonsillectomy, Tubal Ligation Additional Past Surgical History / Comment(s): [facility] CAROTID ENDARTERECTOMY, colonoscopy, Past Anesthesia/Blood Transfusion Reactions: No Reported Reaction Additional Past Anesthesia/Blood Transfusion Reaction / Comment(s): no blood transfusion Past Psychological History: Depression Additional Psychological History / Comment(s): Pt resides with her significant other. She is independent. Smoking Status: Current every day smoker Past Alcohol Use History: None Reported Additional Past Alcohol Use History / Comment(s): Pt started smoking in 1969 and is a ppd smoker. She drank daily in past but no alcohol for 15 years Past Drug Use History: None Reported - Past Family History Mother Family Medical History: Diabetes Mellitus, Myocardial Infarction (NE) Additional Family Medical History / Comment(s): Mother of a NE at the age of 64 yrs. Father Family Medical History: Diabetes Mellitus, Vascular Disorder Additional Family Medical History / Comment(s): Father had bilateral leg amputations Brother(s) Family Medical History: CVA/TIA Additional Family Medical History / Comment(s): CAROTID ENDARTERECTOMY Sister(s) Family Medical History: Cancer Additional Family Medical History / Comment(s): YOUNGEST SISTER BREAST CA WITH METS,OLDER SISTER BREAST CA Medications and Allergies Home Medications Medication Instructions Recorded Confirmed Type Albuterol Inhaler [Ventolin Hfa 2 puff INHALATION RT-Q4H PRN 08/07/19 06/18/24 History Inhaler] Cyclobenzaprine [Flexeril] 10 mg PO TID PRN 08/07/19 06/18/24 History HYDROcodone/APAP 7.5-325MG [[place] 1 tab PO TID PRN 08/07/19 06/18/24 History 7.5-325] Aspirin [[place] Aspirin EC] 81 mg PO DAILY 12/25/22 06/18/24 History DULoxetine HCL [Cymbalta] 60 mg PO DAILY 06/18/24 06/18/24 History Allergies Allergy/AdvReac Type Severity Reaction Status Date / Time dipyridamole [From Aggrenox] Allergy muscle Verified 06/18/24 11:38 tightness tylenol elixir Allergy stephen when Uncoded 12/25/22 10:05 urinating Physical Examination - Vital Signs Vital Signs: Vital Signs Temp Pulse Pulse Resp BP BP Pulse Ox 06/18/24 07:31 97.5 F L 85 17 138/76 92 L 06/18/24 07:07 98.3 F 85 18 95/67 96 06/18/24 05:00 79 18 103/71 96 06/18/24 02:30 78 93/61 96 06/18/24 02:00 80 93/61 97 06/18/24 01:30 80 93/73 96 06/18/24 01:00 98/63 94 L 06/18/24 00:30 80 88/69 95 06/18/24 00:00 82 102/63 94 L 06/17/24 23:49 97.9 F 82 20 100/61 94 L 06/17/24 23:30 84 85/57 95 06/17/24 23:00 82 105/64 96 06/17/24 22:30 82 103/75 98 06/17/24 22:00 90 114/74 89 L 06/17/24 21:30 105 H 107/76 06/17/24 21:00 93 107/73 93 L 06/17/24 20:57 89 107/73 96 06/17/24 20:50 90 107/73 94 L 06/17/24 20:47 91 19 107/73 98 06/17/24 20:46 91 105/72 87 L 06/17/24 20:30 105/72 06/17/24 20:00 85/56 06/17/24 19:30 105/77 06/17/24 19:00 107/69 06/17/24 18:27 97.8 F 90 18 98/64 93 L Intake and Output 06/17/24 06/18/24 06/18/24 22:59 06:59 14:59 Other: Voiding Method Toilet Weight 53.977 kg 53.977 kg Patient is an elderly female, in no acute distress. Patient is alert awake oriented to time place and person. Speech and language functions are normal. Patient can name and repeat very well. No aphasia or dysarthria. Attention, concentration and fund of knowledge is adequate. On cranial nerve examination, pupils are equal, round and reacting to light, visual [place] are full on confrontation, with no neglect on double simultaneous stimulation. Extraocular muscles are intact with no nystagmus. Patient has flattening of the right nasolabial fold. Her tongue protrudes to the midline. Palatal elevation and sensation normal, hearing and shoulder shrug normal, facial sensation normal. On muscle strength testing, there is no pronator drift and the strength is normal in arms and legs distally and proximally. Deep tendon reflexes are symmetric 1+ and plantars downgoing. Sensory to touch is equal with no neglect on double simultaneous stimulation. Cerebellar function showed no ataxia for [id number] testing. No dysdiadochokinesia. No ataxia for [id number] testing on either side. Tone and bulk of muscles normal. Gait deferred.. On general examination, there is no carotid bruit or murmur, S1-S2 audible. Chest is clear on consultation. Abdomen is soft nontender. No organomegaly, bowel sounds present. Peripheral pulses are present. No peripheral edema. Results - Laboratory Findings CBC and BMP: 06/18/24 11:10 06/17/24 18:35 Abnormal Lab Findings: Abnormal Labs 06/17/24 06/17/24 06/17/24 18:35 18:35 18:35 RBC 3.83 L MCV 99.5 H MCH 34.7 H Immature Plt Fraction 6.7 H APTT 20.3 L Sodium 134 L Calcium 7.7 L Total Protein 5.4 L Albumin 2.7 L HDL Cholesterol Ur Specific [place] Ur Leukocyte Esterase Urine RBC Urine WBC Hyaline Casts Urine Mucus Urine Opiates Screen U Tricyclic Antidepress U Marijuana (THC) Screen 06/17/24 06/17/24 06/18/24 18:35 21:33 11:10 RBC MCV 102.2 H MCH 34.4 H Immature Plt Fraction APTT Sodium Calcium Total Protein Albumin HDL Cholesterol 36.80 L Ur Specific [place] 1.045 H Ur Leukocyte Esterase Trace H Urine RBC 6 H Urine WBC 15 H Hyaline Casts 8 H Urine Mucus Rare H Urine Opiates Screen Detected H U Tricyclic Antidepress Detected H U Marijuana (THC) Screen Detected H Assessment and Plan Assessment: * Possible TIA manifesting with transient right facial numbness, that lasted for 10 minutes. She has been having some intermittent paresthesias of the right facial region. Examination revealed flattening of the right nasolabial fold otherwise unremarkable. * Tobacco use * Urine positive for marijuana, patient denies. Plan: * MRI of the brain without contrast, evaluate for acute CVA * 2-D echo with bubble study to rule out PFO * CTA head and neck showed: Occlusion of the right ICA extending from its origin to the [place] (similar from 06/03/2011 study). There is 41% stenosis of the proximal left ICA secondary to noncalcified plaque. Vertebral arteries are patent. No evidence of intracranial high-grade stenosis or intracranial aneurysm. * Carotid Doppler, rule out stenosis * May need vascular surgery consultation if MRI is positive for CVA. * Fasting a.m. lipid panel with cholesterol 105, LDL 54, HDL 36, triglycerides 70. Patient started on Lipitor 40 mg daily. * Hemoglobin A1c * TSH, B12, folate * Optimize control of blood pressure * Patient was taking aspirin 81 mg daily. The dose has been increased to 325 mg for now. * Neuro checks as per protocol. * Telemetry monitoring rule out any arrhythmia * PT, OT, speech therapy * Recommend complete tobacco cessation. * DVT prophylaxis: Heparin 5000 units subcu every 12 hours * Dr. Josemanuel Delgadillo will resume neurology service in the morning. * Neurology will continue to follow. Thank you for the consult.
[2024-06-19 06:17] LABS: NRBC Per 100 WBC 0 X 10*3/uL (0.00-0.01)
[2024-06-19 07:52] LABS: ALT 12 U/L (8-44); AST 19 U/L (13-35); Albumin 3.5 g/dL (3.8-4.9); Albumin/Globulin Ratio 1.52 Ratio (1.60-3.17); Alkaline Phosphatase 85 U/L (41-126); BUN/Creat Ratio 13.12 Ratio (12.00-20.00); Blood Urea Nitrogen 10.5 mg/dL (9.0-27.0); Calcium 8.7 mg/dL (8.7-10.3); Carbon Dioxide 29.3 mmol/L (21.6-31.8); Chloride 102 mmol/L (96-109); Globulin 2.3 g/dL (1.6-3.3); Glucose 81 mg/dL (70-110); Potassium 3.9 mmol/L (3.5-5.5); Sodium 139 mmol/L (135-145); Total Bilirubin 0.7 mg/dL (0.3-1.2); Total Protein 5.8 g/dL (6.2-8.2)
[2024-06-19 08:31] LABS: Basophils # (A) 0.04 X 10*3/uL (0.00-0.10); Basophils % (A) 0.5 %; Eosinophils # (A) 0.15 X 10*3/uL (0.04-0.35); HCT 44.7 % (37.2-46.3); HGB 14.6 g/dL (12.0-15.0); Lymphocytes # (A) 1.92 X 10*3/uL (0.90-5.00); Lymphocytes % (A) 25.3 %; MCH 33.6 pg (27.0-32.0); MCHC 32.7 g/dL (32.0-37.0); MCV 102.8 FL (80.0-97.0); Mean Platelet Volume 11.2 FL (9.5-12.2); Monocytes # (A) 0.46 X 10*3/uL (0.20-1.00); Monocytes % (A) 6.1 %; NRBC Per 100 WBC 0 X 10*3/uL (0.00-0.01); Neutrophils # (A) 5.01 X 10*3/uL (1.80-7.70); Neutrophils % (A) 65.8 %; Platelet Count 234 X 10*3/uL (140-440); RBC 4.35 X 10*6/uL (4.10-5.20); RDW 13.2 % (11.5-14.5)
[2024-06-19 08:41] LABS: ALT 12 U/L (8-44); AST 17 U/L (13-35); Albumin 3.5 g/dL (3.8-4.9); Albumin/Globulin Ratio 1.46 Ratio (1.60-3.17); Alkaline Phosphatase 84 U/L (41-126); BUN/Creat Ratio 21.29 Ratio (12.00-20.00); Blood Urea Nitrogen 14.9 mg/dL (9.0-27.0); Calcium 9.1 mg/dL (8.7-10.3); Carbon Dioxide 27.5 mmol/L (21.6-31.8); Chloride 104 mmol/L (96-109); Globulin 2.4 g/dL (1.6-3.3); Glucose 101 mg/dL (70-110); Potassium 4.2 mmol/L (3.5-5.5); Sodium 141 mmol/L (135-145); Total Bilirubin 0.6 mg/dL (0.3-1.2); Total Protein 5.9 g/dL (6.2-8.2)
[2024-06-19] MEDS: HEPARIN SODIUM,PORCINE 5,000 UNIT/ML 1 ML VIAL SQ SCH (08:54)
--- NOTE | 2024-06-19 09:14 | US ---
EXAMINATION TYPE: US carotid duplex BILAT DATE OF EXAM: 06/19/2024 COMPARISON: Correlation CT 06/17/2024 CLINICAL INDICATION: Female, 68 years old with history of ica stenosis; Additional History: Dizziness TECHNIQUE: Grayscale, color Doppler and spectral Doppler evaluation of the bilateral carotid systems and vertebral arteries. Indirect Doppler criteria was utilized. FINDINGS: EXAM MEASUREMENTS: RIGHT: Peak Systolic Velocity (PSV) cm/sec ----- Right CCA: 70.4 ----- Right ICA: 144 ----- Right ECA: 273 ICA/CCA ratio: 2.1 RIGHT: End Diastole cm/sec ----- Right CCA: 29.3 ----- Right ICA: 35.7 ----- Right ECA: 34.4 LEFT: Peak Systolic Velocity (PSV) cm/sec ----- Left CCA: 98.2 ----- Left ICA: 179 ----- Left ECA: 141 ICA/CCA ratio: 1.8 LEFT: End Diastole cm/sec ----- Left CCA: 45.7 ----- Left ICA: 86.1 ----- Left ECA: 27.1 VERTEBRALS (direction of flow): Right Vertebral: Antegrade Left Vertebral: Antegrade Rhythm: Normal [employer] NOTES: Very limited scan due to severe vessel tortuosity, RT ICA very limited due to tortuosity, minimal visualization Elevated velocities seen at RT Bulb & RT ECA, slightly elevated velocities seen at RT ICA, not well v isualized, Elevated velocities seen at LT ICA, Significant plaque seen within RT Bulb Difficulty following RT ICA, CTA two days ago shows occlusion of vessel just distal to bifurcation Color Doppler imaging shows patency with blood flow throughout the carotid artery. Spectral waveforms are within normal limits. IMPRESSION: 1. Note that the carotid ultrasound/Doppler assessment is suboptimal due to severe vessel tortuosity and minimal visualization. Measurements suggest at least moderate proximal left ICA stenosis. 2. The right ICA occlusion to subtotal occlusion noted on 06/17/2024 CTA is not well demonstrated by leno guzman. 3. Note that there is a 2.3 cm left upper lobe mass on the patient's CTA. Appropriate oncologic evalu ation advised. Criteria for Assigning % of Stenosis / Diameter reduction (Estimation based on the indirect measurements of the internal carotid artery velocities (ICA PSV). 1. Normal (no stenosis)=ICA PSV < 180 cm/s: ratio < 2.0: ICA EDV<40 cm/s. 2. Less than 50% stenosis=ICA PSV < 180 cm/s: ratio < 2.0: ICA EDV<40 cm/s. 3. 50 to 69% stenosis=ICA PSV of 180 to 230 cm/s: ration 2.0 ? 4.0: ICA EDV 40-100 cm/s. PSV 125-180 cm/sec and ICA/CCA PSV Ratio ? 2.0 is also consistent with 50-69% stenosis 4. Greater than 70% stenosis to near occlusion= ICA PSV > 230 cm/s: ratio > 4.0: ICA EDV > 100 cm/s. 5. Near occlusion= ICA PSV velocities may be low or undetectable: variable ratio and ICA EDV. 6. Total occlusion=unable to detect flow. [facility], , 06/19/2024 9:12 AM
--- NOTE | 2024-06-19 12:23 | P.PN ---
Subjective Progress Note Date: 06/19/24 I am seeing the patient for the first time during this hospital admission. Please refer to Dr. Bourgeois's note for further details. Seems the patient had transient right facial numbness as well as intermittent paresthesia over the right face. Her symptoms was concerning for transient ischemic attack. She is pending the rest of the stroke workup. Patient feels she is back to baseline. Objective - Vital Signs Vital signs: Vital Signs Temp 98.2 F 06/19/24 08:00 Pulse 90 06/19/24 08:00 Resp 18 06/19/24 08:00 BP 104/71 06/19/24 08:00 Pulse Ox 94 L 06/19/24 08:00 FiO2 Intake & Output 06/18/24 06/19/24 06/19/24 18:59 06:59 18:59 Intake Total 70 Balance 70 Weight 53.977 kg Intake: IV 10 Invasive Line 2 10 Oral 60 Other: Voiding Method Toilet Toilet Toilet # Voids 2 2 - Exam GENERAL: The patient is lying in bed and is not in acute distress. NEUROLOGICAL: Higher mental function: The patient is awake, alert, oriented to self, place and time. Patient is following commands. No aphasia and no neglect. Cranial nerves: The pupils are round, equal and reactive to light and accommodation. Visual [place] are full to confrontation throughout. Extraocular movement is intact no nystagmus is noted. Facial sensation is normal to touch throughout. The facial strength is normal throughout. Tongue is midline and moved [id number] without any difficulty. No dysarthria is noted. Motor: The strength is 5 over 5 throughout. Normal tone and bulk. Cerebellum: Normal finger to nose bilaterally. Sensation: Sensation is normal to touch throughout. - Labs CBC & Chem 7: 06/19/24 04:28 06/19/24 04:28 Labs: Abnormal Lab Results - Last 24 Hours (Table) 06/18/24 06/18/24 06/19/24 Range/Units 11:10 11:10 04:28 MCV 102.8 H (80.0-97.0) FL MCH 33.6 H (27.0-32.0) pg BUN/Creatinine Ratio (12.00-20.00) Ratio Hemoglobin A1c 6.1 H (<=6.0) % Total Protein 5.8 L (6.2-8.2) g/dL Albumin 3.5 L (3.8-4.9) g/dL Albumin/Globulin Ratio 1.52 L (1.60-3.17) Ratio Folate (4.40-31.00) ng/mL 06/19/24 06/19/24 Range/Units 04:28 04:28 MCV (80.0-97.0) FL MCH (27.0-32.0) pg BUN/Creatinine Ratio 21.29 H (12.00-20.00) Ratio Hemoglobin A1c (<=6.0) % Total Protein 5.9 L (6.2-8.2) g/dL Albumin 3.5 L (3.8-4.9) g/dL Albumin/Globulin Ratio 1.46 L (1.60-3.17) Ratio Folate 3.10 L (4.40-31.00) ng/mL Assessment and Plan Assessment: * Probable TIA manifesting with transient right facial numbness, that lasted for 10 minutes. She has been having some intermittent paresthesias of the right facial region. Examination revealed flattening of the right nasolabial fold otherwise unremarkable--resolved. * Folic Acid deficiency * Low normal vitamin B12 * Tobacco use * Urine positive for marijuana, patient denies. Plan: * MRI of the brain without contrast, evaluate for acute CVA * 2-D echo with bubble study to rule out PFO * CTA head and neck showed: Occlusion of the right ICA extending from its origin to the [place] (similar from 06/03/2011 study). There is 41% stenosis of the proximal left ICA secondary to noncalcified plaque. Vertebral arteries are patent. No evidence of intracranial high-grade stenosis or intracranial aneurysm. * Carotid Doppler: Study is suboptimal due to severe vessel atrocities and minimal visualization. Measurement suggests at least moderate proximal left ICA stenosis. The right ICA occlusion to self total occlusion noted on 06/17/2024 CTA is not while demonstrated by ultrasound. Note there is 2.3 left upper lobe mass of the patient CT angiography. Oncological evaluation advised. * Consulted vascular surgery team. * Fasting a.m. lipid panel with cholesterol 105, LDL 54, HDL 36, triglycerides 70. Patient started on Lipitor 40 mg daily. * Hemoglobin A1c: 6.1 * TSH: 5.18, B12: 247, folate: 3.10. Start the patient on folic acid 1 mg daily. For the low normal vitamin B12 I gave the patient IM 1000 mcg and after that 1000 mcg p.o. daily. * Optimize control of blood pressure * Patient was taking aspirin 81 mg daily. The dose has been increased to 325 mg for now. * Neuro checks as per protocol. * Telemetry monitoring rule out any arrhythmia * PT, OT, speech therapy * Recommend complete tobacco cessation. * DVT prophylaxis: Heparin 5000 units subcu every 12 hours Time with Patient: Less than 30
--- NOTE | 2024-06-19 13:42 | P.GSCN ---
History of Present Illness Consult date: 06/19/24 Reason for Consult: Carotid stenosis likely TIA Requesting physician: Josemanuel Delgadillo History of present illness: This a pleasant 68-year-old female with a history of strokes in the past without any residual side effects, bilateral carotid stenosis status post endarterectomies about 20 years ago which she states was done in [facility], hyperlipidemia not on cholesterol medication, and pack and 1/2-day smoker since age 13. Patient had come into the emergency department 2 days ago with complaints of right sided facial numbness and tingling which she states was most of the right side of her face including her lip which lasted 15 to 20 minutes. She was admitted for stroke workup. She had a brain CT that showed no acute findings but remote bilateral frontal lobe injuries. She had a CT angiogram of the head and neck with reported right internal carotid artery occlusion and 41% stenosis of the left internal carotid artery. She was further evaluated by neurology today had a carotid duplex that has discordant findings from CTA with reported right ICA stenosis and moderate left ICA stenosis. Patient denies any recent follow-up with vascular surgeon or cardiology. States it has been about 10 years since her carotid arteries were evaluated. She denies any chest pain, shortness of breath, abdominal pain, nausea or vomiting. She denies any focal deficits. No return of facial numbness denied any visual changes during her episode and states that her daughter said her speech was possibly off during th at time. Denied any right upper or lower extremity weakness. Review of Systems A 14 point review systems was completed all pertinent positives and negatives as stated in the HPI. Past Medical History Past Medical History: COPD, CVA/TIA, Hyperlipidemia, Osteoarthritis (OA), Vascular Disorder Additional Past Medical History / Comment(s): Recent pneumonia 2021, CVA X 2-NO RESIDUAL, chronic back pain/thoracic herniated discs, bilateral carpal tunnel syndrome, bilateral caratid endartectomies. History of Any Multi-Drug Resistant Organisms: None Reported Past Surgical History: Cholecystectomy, Tonsillectomy, Tubal Ligation Additional Past Surgical History / Comment(s): ALBERT CAROTID ENDARTERECTOMY, colonoscopy, Past Anesthesia/Blood Transfusion Reactions: No Reported Reaction Additional Past Anesthesia/Blood Transfusion Reaction / Comm: no blood transfusion Past Psychological History: Depression Additional Psychological History / Comment(s): Pt resides with her significant other. She is independent. Smoking Status: Current every day smoker Past Alcohol Use History: None Reported Additional Past Alcohol Use History / Comment(s): Pt started smoking in 1969 and is a ppd smoker. She drank daily in past but no alcohol for 15 years Past Drug Use History: None Reported - Past Family History Mother Family Medical History: Diabetes Mellitus, Myocardial Infarction ([place]) Additional Family Medical History / Comment(s): Mother of a [place] at the age of 64 yrs. Father Family Medical History: Diabetes Mellitus, Vascular Disorder Additional Family Medical History / Comment(s): Father had bilateral leg amputations Brother(s) Family Medical History: CVA/TIA Additional Family Medical History / Comment(s): CAROTID ENDARTERECTOMY Sister(s) Family Medical History: Cancer Additional Family Medical History / Comment(s): YOUNGEST SISTER BREAST CA WITH METS,OLDER SISTER BREAST CA Medications and Allergies Home Medications Medication Instructions Recorded Confirmed Type Albuterol Inhaler [Ventolin Hfa 2 puff INHALATION RT-Q4H PRN 08/07/19 06/18/24 History Inhaler] Cyclobenzaprine [Flexeril] 10 mg PO TID PRN 08/07/19 06/18/24 History HYDROcodone/APAP 7.5-325MG [[place] 1 tab PO TID PRN 08/07/19 06/18/24 History 7.5-325] Aspirin [[place] Aspirin EC] 81 mg PO DAILY 12/25/22 06/18/24 History DULoxetine HCL [Cymbalta] 60 mg PO DAILY 06/18/24 06/18/24 History Allergies Allergy/AdvReac Type Severity Reaction Status Date / Time dipyridamole [From Aggrenox] Allergy muscle Verified 06/18/24 11:38 tightness tylenol elixir Allergy stephen when Uncoded 12/25/22 10:05 urinating Surgical - Exam Vital Signs Temp Pulse Resp BP Pulse Ox 97.8 F 90 18 98/64 93 L 06/17/24 18:27 06/17/24 18:27 06/17/24 18:27 06/17/24 18:27 06/17/24 18:27 General appearance: The patient is alert, oriented, appears in no acute distress. HET: Head is normocephalic and atraumatic. Pupils are equal and reactive. Reynolds ition with overbite. Neck: Supple. No carotid bruit. Heart: Regular. Lungs: Equal expansion, normal respiratory effort. Abdomen: Soft, nontender, nondistended. Extremities: Normal skin color and turgor. Palpable bilateral radial and DP pulses. Neurological: No focal deficits. Strength and sensation are grossly intact. Results - Labs 06/19/24 04:28 06/19/24 04:28 Abnormal Lab Results - Last 24 Hours (Table) 06/18/24 06/18/24 06/19/24 Range/Units 11:10 11:10 04:28 MCV 102.8 H (80.0-97.0) FL MCH 33.6 H (27.0-32.0) pg BUN/Creatinine Ratio (12.00-20.00) Ratio Hemoglobin A1c 6.1 H (<=6.0) % Total Protein 5.8 L (6.2-8.2) g/dL Albumin 3.5 L (3.8-4.9) g/dL Albumin/Globulin Ratio 1.52 L (1.60-3.17) Ratio Folate (4.40-31.00) ng/mL 06/19/24 06/19/24 Range/Units 04:28 04:28 MCV (80.0-97.0) FL MCH (27.0-32.0) pg BUN/Creatinine Ratio 21.29 H (12.00-20.00) Ratio Hemoglobin A1c (<=6.0) % Total Protein 5.9 L (6.2-8.2) g/dL Albumin 3.5 L (3.8-4.9) g/dL Albumin/Globulin Ratio 1.46 L (1.60-3.17) Ratio Folate 3.10 L (4.40-31.00) ng/mL Diabetes panel 06/18/24 06/18/24 06/19/24 Range/Units 11:10 11:10 04:28 Sodium 139 141 (135-145) mmol/L Potassium 3.9 4.2 (3.5-5.5) mmol/L Chloride 102 104 (96-109) mmol/L Carbon Dioxide 29.3 27.5 (21.6-31.8) mmol/L BUN 10.5 14.9 (9.0-27.0) mg/dL Creatinine 0.8 0.7 (0.6-1.5) mg/dL Glucose 81 101 (70-110) mg/dL Hemoglobin A1c 6.1 H (<=6.0) % Calcium 8.7 9.1 (8.7-10.3) mg/dL AST 19 17 (13-35) U/L ALT 12 12 (8-44) U/L Alkaline Phosphatase 85 84 (41-126) U/L Total Protein 5.8 L 5.9 L (6.2-8.2) g/dL Albumin 3.5 L 3.5 L (3.8-4.9) g/dL Thyroid panel 06/19/24 Range/Units 04:28 TSH 5.180 (0.350-5.500) UIU/ML Calcium panel 06/18/24 06/19/24 Range/Units 11:10 04:28 Calcium 8.7 9.1 (8.7-10.3) mg/dL Albumin 3.5 L 3.5 L (3.8-4.9) g/dL Pituitary panel 06/18/24 06/19/24 Range/Units 11:10 04:28 Sodium 139 141 (135-145) mmol/L Potassium 3.9 4.2 (3.5-5.5) mmol/L Chloride 102 104 (96-109) mmol/L Carbon Dioxide 29.3 27.5 (21.6-31.8) mmol/L BUN 10.5 14.9 (9.0-27.0) mg/dL Creatinine 0.8 0.7 (0.6-1.5) mg/dL Glucose 81 101 (70-110) mg/dL Calcium 8.7 9.1 (8.7-10.3) mg/dL TSH 5.180 (0.350-5.500) UIU/ML Adrenal panel 06/18/24 06/19/24 Range/Units 11:10 04:28 Sodium 139 141 (135-145) mmol/L Potassium 3.9 4.2 (3.5-5.5) mmol/L Chloride 102 104 (96-109) mmol/L Carbon Dioxide 29.3 27.5 (21.6-31.8) mmol/L BUN 10.5 14.9 (9.0-27.0) mg/dL Creatinine 0.8 0.7 (0.6-1.5) mg/dL Glucose 81 101 (70-110) mg/dL Calcium 8.7 9.1 (8.7-10.3) mg/dL Total Bilirubin 0.7 0.6 (0.3-1.2) mg/dL AST 19 17 (13-35) U/L ALT 12 12 (8-44) U/L Alkaline Phosphatase 85 84 (41-126) U/L Total Protein 5.8 L 5.9 L (6.2-8.2) g/dL Albumin 3.5 L 3.5 L (3.8-4.9) g/dL - Imaging Comments: Carotid ultrasound impression reports no that carotid ultrasound Doppler assessment suboptimal due to severe vessel tortuosity and minimal visualization. Measurements suggest at least moderate proximal left ICA stenosis. Right ICA occlusion to subtotal occlusion noted on 06/17/2024 CTA is not well-demonstrated by ultrasound. There is a 2.3 cm left upper lobe mass on the patient's CTA. Appropriate oncologic evaluation advised. Right ICA PSV 144, ICA/CCA ratio 2.1 Left ICA PSV 179, ICA/CCA ratio 1.8 CTA head and neck report similar from 06/03/2011, occlusion of the right internal carotid artery extending from its origin to the [place]. 41% stenosis of the proximal left internal carotid artery secondary to noncalcified plaque. The vertebral arteries are patent. No evidence of intracranial high-grade stenosis or intracranial aneurysm. Brain CT without contrast reports no acute intracranial process. Remote bilateral frontal lobe injuries. Nonspecific white matter changes, likely secondary to chronic small vessel ischemic disease Assessment and Plan Assessment: 1. Right ICA occlusion per CTA head and neck with discordant findings on carotid duplex. With previous CTA reported as occluded, current CTA reviewed, agree with CTA findings. 2. Right facial numbness and tingling, now resolved 3. History of stroke. Brain CT reports remote bilateral frontal lobe injuries 4. History of carotid stenosis status post bilateral carotid endarterectomies approximately 20 years ago 5. Smoker since teenager Plan: 1. Continue aspirin, agree with adding atorvastatin 40 mg at bedtime 2. Agree with PT, OT and speech therapy evaluation 3. Await brain MRI results 4. Await further recommendations from vascular surgeon Thank you for this consultation, we will continue to follow. The impression and plan of care has been dictated as directed. Dr. Cuppari I performed a history and examination of this patient, discussed the same with the dictator. I agree with the dictator's note ,documented as a scribe. Any additional findings or plans will be noted.
[2024-06-19] MEDS: CYANOCOBALAMIN 1,000 MCG/ML 1 ML VIAL IM ONE (13:43)
[2024-06-19] MEDS: FOLIC ACID 1 MG TAB PO SCH (13:44)
--- NOTE | 2024-06-19 23:52 | P.PN ---
Subjective Progress Note Date: 06/19/24 History of present illness; patient 68-year-old lady with past medical history significant for hyperlipidemia to the ER because of right-sided facial numbness. Patient admits she was all right last night but when this morning when she woke up around 3:30 AM she noticed that she was having some numbness of her right side of her face. There was no complaint of any slurred speech. Patient denied any weakness of any extremity. There was no complaint of jerking movement of the extremity. Patient did not come to the ER later in the afternoon. Initial lab work done in the ER showed WBC 8.25, hemoglobin 13.3, platelet count 195, sodium 134, potassium 4, BUN 15, creatinine 0.84, calcium 7.7, UA not suggestive of infection Urine drug screen shows positive opioids, tricyclic antidepressants, marijuana EKG done in the ER showed heart rate of 85, no ST segment elevation or depression seen, no T-wave inversions seen. Chest x-ray done in the ER showed chronic changes without acute pulmonary process. CT head done showed no acute intracranial process, showed remote bilateral frontal lobe CTA head and neck done showed similar to previous study showing occlusion of the right internal carotid artery extending from its origin to the [place], 41% stenosis of the proximal left internal carotid artery secondary to noncalcified plaque Patient admitted to internal medicine service 06/19/2024 Patient is seen in follow-up today with neurology following and vascular surgery has been consulted for carotid stenosis. Patient currently awaiting MRI as well as 2D echo with bubble study. Patient reports her right side weakness has improved and feels is at baseline. Patient reports she most likely had strokes previously but was never hospitalized or evaluated for it. Patient reports she will be going home once cleared by neurology. Review of systems: Constitutional: No reports of fatigue, fever, or chills Cardiovascular: No reports of chest pain or palpitations Respiratory: No reports of shortness of breath or cough GI: No reports of nausea, vomiting, or diarrhea : No reports of dysuria or retention Neurovascular: reports of generalized weakness, but feels is at baseline All medications have been reviewed PHYSICAL EXAMINATION: GENERAL: The patient is alert and oriented x3, not in any acute distress. Well developed, thin built, elderly appearing HEENT: Pupils are round and equally reacting to light. EOMI. No scleral icterus. No conjunctival pallor. Normocephalic, atraumatic. No pharyngeal erythema. No thyromegaly. CARDIOVASCULAR: S1 and S2 muffled PULMONARY: Chest is clear to auscultation, no wheezing or crackles. ABDOMEN: Soft, thin, nondistended, normoactive bowel sounds. No palpable organomegaly. MUSCULOSKELETAL: No joint swelling or deformity. EXTREMITIES: No cyanosis, clubbing, or pedal edema. NEUROLOGICAL: Muscle strength is 5 x 5 in all extremities, cranial nerves II to XII intact, right-sided numbness on face has improved. SKIN: No rashes. Assessment: Right-sided facial numbness with right-sided weakness, rule out acute CVA versus TIA, MRI brain pending for today 06/19/2024 History of hyperlipidemia Carotid stenosis noted on imaging, vascular surgery consulted History of previous CVA Hyperlipidemia Continued ongoing nicotine dependence Depression Osteoarthritis GI prophylaxis DVT prophylaxis Full code Plan: Continue with neurochecks Continue medication regimen as prescribed Encouraged increase activity as tolerated and awaiting PT/OT therapy evaluation. Patient reports she will be going home with family Will discuss with neurology after MRI and 2D echo was performed Possible discharge planning in the next 24 hours The impression and plan of care has been dictated by Kayla Wakefield, Nurse Practitioner as directed. Dr. Preston MD I have performed a history and examination and MDM of this patient, discussed the same with the dictator, and agree with the dictator's assessment and plan as written ,documented as a scribe. Based on total visit time, I have performed more than 50% of the visit. Objective - Vital Signs Vital signs: Vital Signs Temp 98.2 F 06/19/24 08:00 Pulse 90 06/19/24 08:00 Resp 18 06/19/24 08:00 BP 104/71 06/19/24 08:00 Pulse Ox 94 L 06/19/24 08:00 FiO2 Intake & Output 06/18/24 06/19/24 06/19/24 18:59 06:59 18:59 Intake Total 70 Balance 70 Weight 53.977 kg Intake: IV 10 Invasive Line 2 10 Oral 60 Other: Voiding Method Toilet Toilet Toilet # Voids 2 2 - Labs CBC & Chem 7: 06/19/24 04:28 06/19/24 04:28 Labs: Abnormal Lab Results - Last 24 Hours (Table) 06/18/24 06/18/24 06/18/24 Range/Units 11:10 11:10 11:10 MCV 102.2 H (80.0-97.0) fL MCH 34.4 H (27.0-32.0) pg BUN/Creatinine Ratio (12.00-20.00) Ratio Hemoglobin A1c 6.1 H (<=6.0) % Total Protein 5.8 L (6.2-8.2) g/dL Albumin 3.5 L (3.8-4.9) g/dL Albumin/Globulin Ratio 1.52 L (1.60-3.17) Ratio 06/19/24 06/19/24 Range/Units 04:28 04:28 MCV 102.8 H (80.0-97.0) fL MCH 33.6 H (27.0-32.0) pg BUN/Creatinine Ratio 21.29 H (12.00-20.00) Ratio Hemoglobin A1c (<=6.0) % Total Protein 5.9 L (6.2-8.2) g/dL Albumin 3.5 L (3.8-4.9) g/dL Albumin/Globulin Ratio 1.46 L (1.60-3.17) Ratio
--- NOTE | 2024-06-20 01:08 | MR ---
EXAMINATION TYPE: MR brain wo con DATE OF EXAM: 06/19/2024 9:58 PM COMPARISON: CT brain 06/17/2024 CLINICAL INDICATION: Female, 68 years old with history of Facial numbness, Facial numbness TECHNIQUE: Multiplanar, multiecho imaging on a 3.0 Jodie magnet is performed through the brain. Stud y is performed within 24 hours of arrival to the hospital.Multiplanar, multiecho imaging on a 3.0 Kimmy la magnet is performed through the knee. IV Contrast: mL (None, if empty) FINDINGS: The craniovertebral junction is normal. The pituitary is normal. Diffusion-weighted imaging is performed. No abnormal hyperintensity is present to suggest an acute i ntracranial infarct or acute ischemic change. There is confluent white matter change within the left centrum semiovale. Small area of right frontal centrum semiovale uptake is present. Some periventricular white matter hyperintensity is present gre ater on the left parietal-occipital region. Ventricles and sulci are appropriate for the patient age. IMPRESSION: 1. Chronic appearing White matter changes greater through the left frontal and parietal centrum semio bravo. There are additional smaller areas of white matter hyperintensity likely on the basis of chroni c white matter ischemic changes. [facility], Workstation: [facility], 06/20/2024 1:06 AM
[2024-06-20 07:33] VITALS: RESP 17
[2024-06-20] MEDS: CYANOCOBALAMIN 500 MCG TAB PO SCH (09:40)
--- NOTE | 2024-06-20 10:04 | CA ---
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 67 - 155 / 56 - 104 cm??? LV Systolic Volume MOD BP 23.6 cm??? 22 - 58 / 19 - 49 cm??? LV Ejection Fraction MOD BP 61.6 % >= 55 % LV Cardiac Index MOD BP 2094.0 cm???/min???m??? LV Diastolic Volume MOD 4C 60.3 cm??? LV Systolic Volume MOD 4C 24.7 cm??? LV Ejection Fraction MOD 4C 59.1 % LV Cardiac Index MOD 4C 1976.4 cm???/min???m??? LV Diastolic Length 4C 7.1 cm LV Systolic Length 4C 5.6 cm LV Diastolic Volume MOD 2C 61.2 cm??? LV Systolic Volume MOD 2C 22.3 cm??? LV Ejection Fraction MOD 2C 63.6 % LV Cardiac Index MOD 2C 2159.8 cm???/min???m??? LV Diastolic Length 2C 7.0 cm LV Systolic Length 2C 5.5 cm LA Volume 18.1 cm??? 18 - 58 / 22 - 52 cm??? LA Volume Index 11.7 cm???/m??? 16 - 28 cm???/m??? DOPPLER AV Peak Velocity 115.2 cm/s AV Peak Gradient 5.3 mmHg AV Mean Velocity 89.5 cm/s AV Mean Gradient 3.5 mmHg AV Velocity Time Integral 23.5 cm LVOT Peak Velocity 88.5 cm/s LVOT Peak Gradient 3.1 mmHg LVOT Velocity Time Integral 16.7 cm LVOT Stroke Volume 37.4 cm??? LVOT Stroke Volume Index 24.1 ml/m??? LVOT Cardiac Index 2074.1 cm???/min???m??? AV Area Cont Eq vti 1.6 cm??? AV Area Cont Eq pk 1.7 cm??? MV Area PHT 4.9 cm??? Mitral E Point Velocity 64.7 cm/s Mitral A Point Velocity 76.8 cm/s Mitral E to A Ratio 0.8 MV Deceleration Time 154.8 ms PV Peak Velocity 69.6 cm/s PV Peak Gradient 1.9 mmHg FINDINGS Left Ventricle Left ventricular ejection fraction is estimated at 55 %. Left ventricular cavity size normal. Left ventricular wall thickness normal. No obvious regional wall motion abnormalities. Right Ventricle Normal right ventricular size. Mildly reduced right ventricular global systolic function. Unable to estimate the right ventricular systolic pressure. Right Atrium Normal right atrial size. Negative agitated saline bubble study for right to left shunt. Left Atrium Normal left atrial size. Mitral Valve Structurally normal mitral valve. No mitral stenosis, regurgitation or prolapse. Aortic Valve Trileaflet aortic valve. Aortic valve sclerosis. No aortic valve stenosis or regurgitation. Tricuspid Valve Structurally normal tricuspid valve. No tricuspid stenosis. No tricuspid regurgitation. Pulmonic Valve Pulmonic valve not well visualized. No pulmonic stenosis. Trace pulmonic regurgitation. Pericardium No pericardial effusion. Aorta Normal size aortic root and proximal ascending aorta. CONCLUSIONS Normal LV size fairly well-preserved LV systolic function. Right ventricle function appears to be mildly reduced. Mild mitral and tricuspid regurgitation no pericardial effusion. Negative bubble study for [id number] shunt Previewed by: Dr. Ksenia Lawler MD (Electronically Signed) Final Date: 20 Jun 2024 10:03
--- NOTE | 2024-06-20 11:44 | P.PN ---
Subjective Progress Note Date: 06/20/24 Principal diagnosis: Carotid stenosis Patient is seen and examined today as a follow-up. She denies any focal deficits. She has not had any further numbness or tingling or weakness to the right side of her face. She states speech is fluent no difficulty with swallowing. No complaints of upper or lower extremity weakness. She had her MRI of the brain with no acute findings suggestive of acute stroke. Objective - Vital Signs Vital signs: Vital Signs Temp 97.8 F 06/20/24 07:32 Pulse 89 06/20/24 07:32 Resp 17 06/20/24 07:32 BP 109/70 06/20/24 07:32 Pulse Ox 91 L 06/20/24 07:32 FiO2 Intake & Output 06/19/24 06/20/24 06/20/24 18:59 06:59 18:59 Intake Total 310 240 Balance 310 240 Intake: IV 10 Invasive Line 2 10 Oral 300 240 Other: Voiding Method Toilet Toilet # Voids 1 2 - Exam General appearance: The patient is alert, oriented, appears in no acute distress. HET: Head is normocephalic and atraumatic. Pupils are equal and reactive. Neck: Supple. Heart: Regular. Lungs: Equal expansion, normal respiratory effort. Abdomen: Soft, nontender, nondistended. Extremities: Normal skin color and turgor. Neurological: No focal deficits. Strength and sensation are grossly intact. - Labs CBC & Chem 7: 06/19/24 04:28 06/19/24 04:28 Labs: Abnormal Lab Results - Last 24 Hours (Table) 06/19/24 Range/Units 04:28 Folate 3.10 L (4.40-31.00) ng/mL Assessment and Plan Assessment: 1. Right ICA occlusion per CTA head and neck with discordant findings on caroti d duplex. With previous CTA reported as occluded, current CTA reviewed, agree with CTA findings. 2. Right facial numbness and tingling, now resolved 3. History of stroke. Brain CT reports remote bilateral frontal lobe injuries 4. History of carotid stenosis status post bilateral carotid endarterectomies approximately 20 years ago 5. Daily Smoker since teenager, 1-1/2 packs/day Plan: 1. Continue aspirin, agree with adding atorvastatin 40 mg at bedtime 2. Agree with PT, OT and speech therapy evaluation 3. Right ICA occluded, left ICA less than 50%. No indication for any vascular surgical intervention at this time. Recommend outpatient follow-up with vascu lar surgery 4. Recommend smoking cessation. Discussed with patient importance of smoking cessation. Patient offered nicotine patch. Quit smoking hotline 1 800 quit-now given to patient. Thank you for this consultation, we will sign off at this time. The impression and plan of care has been dictated as directed. Dr. Byrne I performed a history and examination of this patient, discussed the same with the dictator. I agree with the dictator's note ,documented as a scribe. Any additional findings or plans will be noted.
[2024-06-20 14:32] VITALS: BP 106/73; PULSE 85; TEMP 97.6
--- NOTE | 2024-06-20 15:38 | P.PN ---
Subjective Progress Note Date: 06/20/24 I am following up with the patient and patient feels she is back to baseline. Denies any new neurological issues. Objective - Vital Signs Vital signs: Vital Signs Temp 97.6 F 06/20/24 14:31 Pulse 85 06/20/24 14:31 Resp 17 06/20/24 14:31 BP 106/73 06/20/24 14:31 Pulse Ox 95 06/20/24 14:31 FiO2 Intake & Output 06/19/24 06/20/24 06/20/24 18:59 06:59 18:59 Intake Total 310 240 118 Balance 310 240 118 Intake: IV 10 Invasive Line 2 10 Oral 300 240 118 Other: Voiding Method Toilet Toilet # Voids 1 2 - Exam GENERAL: The patient is lying in bed and is not in acute distress. NEUROLOGICAL: Higher mental function: The patient is awake, alert, oriented to self, place and time. Patient is following commands. No aphasia and no neglect. Cranial nerves: The pupils are round, equal and reactive to light and accommodation. Visual [place] are full to confrontation throughout. Extraocular movement is intact no nystagmus is noted. Facial sensation is normal to touch throughout. The facial strength is normal throughout. Tongue is midline and moved [id number] without any difficulty. No dysarthria is noted. Motor: The strength is 5 over 5 throughout. Normal tone and bulk. Cerebellum: Normal finger to nose bilaterally. Sensation: Sensation is normal to touch throughout. - Labs CBC & Chem 7: 06/19/24 04:28 06/19/24 04:28 Assessment and Plan Assessment: * Probable TIA manifesting with transient right facial numbness, that lasted for 10 minutes. She has been having some intermittent paresthesias of the right facial region. Examination revealed flattening of the right nasolabial fold otherwise unremarkable--resolved. * Folic Acid deficiency * Low normal vitamin B12 * Tobacco use * Urine positive for marijuana, patient denies. Plan: * MRI of the brain: Chronic appearing white matter changes greater throughout the left frontal and parietal centrum semiovale. There is additional small area of white matter hyperintensities likely on the basis of chronic white matter changes. * 2-D echo: Normal left ventricular fairly well-preserved left ventricular systolic function. Negative bubble study for the right to left shunt. * CTA head and neck showed: Occlusion of the right ICA extending from its origin to the [place] (similar from 06/03/2011 study). There is 41% stenosis of the proximal left ICA secondary to noncalcified plaque. Vertebral arteries are patent. No evidence of intracranial high-grade stenosis or intracranial aneurysm. * Carotid Doppler: Study is suboptimal due to severe vessel atrocities and minimal visualization. Measurement suggests at least moderate proximal left ICA stenosis. The right ICA occlusion to self total occlusion noted on 0 06/17/2024 CTA is not while demonstrated by ultrasound. Note there is 2.3 left upper lobe mass of the patient CT angiography. Oncological evaluation advised. * Consulted vascular surgery team: Intervention and the nurse practitioner from the vascular surgery team stated that the patient will follow-up as an outpatient. * Fasting a.m. lipid panel with cholesterol 105, LDL 54, HDL 36, triglycerides 7 0. Patient started on Lipitor 40 mg daily. * Hemoglobin A1c: 6.1 * TSH: 5.18, B12: 247, folate: 3.10. Start the patient on folic acid 1 mg daily. For the low normal vitamin B12 I gave the patient IM 1000 mcg and after that 1000 mcg p.o. daily. * Optimize control of blood pressure * Patient was taking aspirin 81 mg daily. The dose has been increased to 325 mg for now. * Neuro checks as per protocol. * Telemetry monitoring rule out any arrhythmia * PT, OT, speech therapy * Recommend complete tobacco cessation. * DVT prophylaxis: Heparin 5000 units subcu every 12 hours * Recommend the patient to follow-up with a neurologist as an outpatient within 2 to 3 weeks There is no additional neurological workup. Will sign off. Please reconsult if needed. Time with Patient: Less than 30
== END 2024-06-20 15:06 | disposition home or self-care (01) | DRG 69 ==
LOC: EC 18:05 → 6NMEDSUR 20:44
PROVIDERS: ADMIT Hospitalist; ATTEND Hospitalist
DX: G45.9 Transient cerebral ischemic attack, unspecified (principal); E53.8 Deficiency of other specified B group vitamins; J44.9 Chronic obstructive pulmonary disease, unspecified; F32.A Depression, unspecified; E78.5 Hyperlipidemia, unspecified; R20.0 Anesthesia of skin; M19.90 Unspecified osteoarthritis, unspecified site; F17.210 Nicotine dependence, cigarettes, uncomplicated; R53.1 Weakness; Z79.899 Other long term (current) drug therapy; Z88.6 Allergy status to analgesic agent; Z88.8 Allergy status to other drugs, medicaments and biological substances; Z86.73 Personal history of transient ischemic attack (TIA), and cerebral infarction without residual deficits; Z79.82 Long term (current) use of aspirin
CPT/HCPCS: 36415; 70450; 70496; 70498; 70551; 71046; 80053; 80061; 80306; 81001; 82550; 82607; 82746; 83036; 84443; 85025; 85610; 85730; 93005; 93306; 93880; 96360; 99291

== ENCOUNTER → 2024-08-25 | Outpatient (CLI) | payer MEDICARE | END | disposition home or self-care (01) | LOC: RADPETMAIN 14:49 | PROVIDERS: ATTEND Internal Medicine Hematology & Oncology | DX: Z53.9 Procedure and treatment not carried out, unspecified reason (principal) ==

== ENCOUNTER → 2024-09-01 | Outpatient (CLI) | payer MEDICARE ==
--- NOTE | 2024-09-01 12:03 | PE ---
EXAMINATION TYPE: PET CT fusion skull to thigh DATE OF EXAM: 09/01/2024 CLINICAL INDICATION:Female, 68 years old with history of R91.1 Lung nodule; TECHNIQUE: Following the intravenous administration of 10.14 mCi of F-18 FDG, whole body images are performed from the skull base to the Mid thigh. Images are reviewed on the computer in the coronal, axial, and sagittal planes. Reconstructed rotating images are created on independent workstation an d reviewed on the computer. A non-contrast CT is performed in conjunction with the PET scan. Glucos e level 106 mg/dL CT DLP: 362 mGycm, Automated exposure control for dose reduction was used. COMPARISON: CT 06/17/2024., PET/CT None, MRI: None FINDINGS: Mediastinal SUV mean is 1.6. Hepatic parenchyma SUV mean is 2.5. SKULL BASE AND NECK: No suspicious radiotracer activity. CHEST, MEDIASTINUM, AND HILAR REGION: Suspicious uptake identified; examples include: * Left upper lobe 26 x 21 mm pulmonary nodule Max SUV 5.9. * Mild left perihilar uptake max SUV 3.0 ABDOMEN AND PELVIS: No suspicious radiotracer activity. MUSCULOSKELETAL STRUCTURES: Nonspecific uptake within the right inferior scapula max SUV 3.2 and on the left 2.0. OTHER CT: Atherosclerosis of the carotid bifurcations and intracranial vasculature. Coronary artery a therosclerosis is present. Aortic valve consultations are present. Negative letter surgically absent. Nonobstructing right renal calculi. Few scattered colonic diverticula. Appendix is normal. IMPRESSION: 1. Left upper lobe pulmonary nodule compatible with malignancy possible early metastatic disease wit h low level uptake in the left pulmonary hilum. 2. Indeterminate uptake likely physiologic in the inferior scapula bilaterally. [facility], , 09/01/2024 12:00 PM
== END | disposition home or self-care (01) ==
LOC: RADPETMAIN 07:47
PROVIDERS: ATTEND Internal Medicine Hematology & Oncology
DX: R91.1 Solitary pulmonary nodule (principal)
CPT/HCPCS: 78815; A9552